=== PATIENT | male | born 1940 ===

== ENCOUNTER 2017-07-08 20:39 | Emergency (ER) | payer MEDICARE, MEDICAID ==
[2017-07-08 20:54] VITALS: TEMP 98.8
[2017-07-08 21:04] VITALS: RESP 16
--- NOTE | 2017-07-08 21:40 | ED PDOC ---
HPI: General Adult Time Seen by Provider: 07/08/17 20:59 Chief Complaint (Nursing): Chest Pain Chief Complaint (Provider): bleeding from A-V shunt History Per: Patient History/Exam Limitations: no limitations Onset/Duration Of Symptoms: Days (x1) Additional Complaint(s): Alida Garcia is a 77 year old male, with a past medical history of CAD, HTN, and end stage renal disease, who presents to the emergency department complaining of bleeding from A-V shunt in right arm onset since today. Patient reports he had dialysis completed today, and is scheduled to have dialysis on Wednesday, and Wednesday. He went home and removed the dressing and scratched the shunt. Bleeding stopped upon arrival. Patient denies any current chest pain or today. Family report he never complained of chest pain. No further medical complaints PMD: None provided. Past Medical History Reviewed: Historical Data, Nursing Documentation, Vital Signs Vital Signs: Last Vital Signs Temp 98.8 F 07/08/17 20:47 Pulse 73 07/08/17 21:53 Resp 16 07/08/17 21:03 BP 144/96 H 07/08/17 21:03 Pulse Ox 95 07/08/17 21:53 - Medical History PMH: CAD, CHF, Depression, Diabetes, Fractures, HTN, Hypercholesterolemia, End Stage Renal Disease, Chronic Kidney Disease (Dialysis ), Seizures Denies: HIV - Surgical History Surgical History: CABG, Pacemaker Other surgeries: A-V shunt on right arm - Family History Family History: States: Unknown Family Hx - Home Medications Home Medications: Ambulatory Orders Medication Instructions Recorded Aspirin [Ecotrin] 81 mg PO DAILY 11/27/16 Blood-Glucose Meter [Contour Next] 11/27/16 Carvedilol [Coreg] 3.125 mg PO BID 11/27/16 Docusate Sodium [Stool Softener] 1 cap PO HS 11/27/16 Hydroxyzine HCl 25 mg PO DAILY 11/27/16 Sevelamer Carbonate [Renvela] 800 mg PO DAILY 11/27/16 - Allergies Allergies/Adverse Reactions: Allergies Allergy/AdvReac Type Severity Reaction Status Date / Time heparin Allergy Mild SHORTNESS Verified 08/30/16 00:54 OF BREATH Review of Systems ROS Statement: Except As Marked, All Systems Reviewed And Found Negative Cardiovascular: Negative for: Chest Pain Musculoskeletal: Negative for: Other (bleeding from AV shunt) Physical Exam - Reviewed Nursing Documentation Reviewed: Yes Vital Signs Reviewed: Yes - Physical Exam Appears: Positive for: Non-toxic, Uncomfortable Head Exam: Positive for: ATRAUMATIC, NORMAL INSPECTION, NORMOCEPHALIC Skin: Positive for: Normal Color, Warm, Dry Eye Exam: Positive for: EOMI, Normal appearance, PERRL ENT: Positive for: Normal ENT Inspection Neck: Positive for: Normal, Painless ROM, Supple Cardiovascular/Chest: Positive for: Regular Rate, Rhythm, Other (Chest midline scar). Negative for: Murmur Respiratory: Positive for: Normal Breath Sounds. Negative for: Respiratory Distress Gastrointestinal/Abdominal: Positive for: Normal Exam, Bowel Sounds, Soft. Negative for: Tenderness Back: Positive for: Normal Inspection. Negative for: L CVA Tenderness, R CVA Tenderness, Vertebral Tenderness Extremity: Positive for: Normal ROM, Other (AV shunt on right upper arm normal bruit, no bleeding.). Negative for: Pedal Edema, Deformity Neurologic/Psych: Positive for: Alert, Oriented. Negative for: Motor/Sensory Deficits - Laboratory Results Result Diagrams: 07/08/17 21:20 07/08/17 21:30 - ECG ECG Rhythm: Positive for: Sinus Rhythm (NORMAL), Nonspecific Changes (T wave changes). Negative for: Normal QRS (left axis deviation) Rate: 73 O2 Sat by Pulse Oximetry: 95 (RA) Pulse Ox Interpretation: Normal Medical Decision Making Medical Decision Making: Initial Impression: traumatic bleeding from AV shunt Initial Plan: --EKG --Basic Metabolic Panel --CBC w/ differential --PTT --PT -Bleeding from AV shunt now resolved Scribe Attestation: Documented by Ike Balbuena, acting as a scribe for Kiersten Quinn MD Provider Scribe Attestation: All medical record entries made by the Scribe were at my direction and personally dictated by me. I have reviewed the chart and agree that the record accurately reflects my personal performance of the history, physical exam, medical decision making, and the department course for this patient. I have also personally directed, reviewed, and agree with the discharge instructions and disposition. Disposition - Clinical Impression Clinical Impression: Hemorrhage of arteriovenous fistula - Patient ED Disposition Is Patient to be Admitted: No Doctor Will See Patient In The: Office Counseled Patient/Family Regarding: Studies Performed, Diagnosis, Need For Followup - Disposition Referrals: [facility] [Outside] Disposition: Routine/Home Disposition Time: 22:43 Condition: GOOD Additional Instructions: Return for worsening. Follow up with your PCP in 2-3 days. Instructions: Hemodialysis (ED)
[2017-07-08 21:41] LABS: BASO % 0.8 % (0.0-2.0); EOS # 0.2 K/uL (0.0-0.7); EOS % 4.6 % (0.0-4.0); HEMATOCRIT 36.3 % (35.0-51.0); LYMPH # 0.7 K/uL (1.0-4.3); MEAN CELL VOLUME 99.5 fl (80.0-94.0); MEAN CORPUSCULAR HEMOGLOBIN 31.6 pg (27.0-31.0); MEAN CORPUSCULAR HGB CONC 31.8 g/dL (33.0-37.0); MEAN PLATELET VOLUME 8.6 fl (7.2-11.7); MONO # 0.4 K/uL (0.0-0.8); MONO % 9.6 % (0.0-10.0); NEUT # 2.6 K/uL (1.8-7.0); NRBC % 0.1 % (0.0-0.0); RED CELL DISTRIBUTION WIDTH 15.5 % (11.5-14.5); WHITE BLOOD COUNT 3.9 K/uL (4.8-10.8)
[2017-07-08 21:43] LABS: CALCIUM 9.2 mg/dL (8.4-10.2)
[2017-07-08 21:44] LABS: POTASSIUM 4.9 MMOL/L (3.6-5.0)
[2017-07-08 22:10] LABS: PARTIAL THROMBOPLASTIN TIME 28.3 Seconds (25.6-37.1)
[2017-07-08 23:19] VITALS: BP 134/71; PULSE 76; O2SAT 96
--- NOTE | 2017-07-09 08:45 | CARD ---
APPROVED REPORT EKG Measurement Heart [id number] <Conclusion> Normal sinus rhythm Left axis deviation T wave abnormality, consider lateral ischemia Prolonged QT Abnormal ECG
== END 2017-07-08 23:25 | disposition home or self-care (01) ==
LOC: H.ER 20:39
DX: T82.838A Hemorrhage due to vascular prosthetic devices, implants and grafts, initial encounter (principal); E11.22 Type 2 diabetes mellitus with diabetic chronic kidney disease; E78.00 Pure hypercholesterolemia, unspecified; F32.9 Major depressive disorder, single episode, unspecified; I12.0 Hypertensive chronic kidney disease with stage 5 chronic kidney disease or end stage renal disease; I25.10 Atherosclerotic heart disease of native coronary artery without angina pectoris; N18.6 End stage renal disease; Z79.82 Long term (current) use of aspirin; Z95.0 Presence of cardiac pacemaker; Z95.1 Presence of aortocoronary bypass graft; Z99.2 Dependence on renal dialysis

== ENCOUNTER 2017-08-07 10:22 | Observation (INO) | payer MEDICARE, MEDICAID ==
[2017-08-07 10:33] VITALS: BMI 23.0
[2017-08-07 11:56] LABS: BASO % 0.6 % (0.0-2.0); EOS # 0.2 K/uL (0.0-0.7); EOS % 4.5 % (0.0-4.0); HEMATOCRIT 31.9 % (35.0-51.0); LYMPH # 0.7 K/uL (1.0-4.3); LYMPH % 13.6 % (20.0-40.0); MEAN CORPUSCULAR HEMOGLOBIN 31.8 pg (27.0-31.0); MEAN CORPUSCULAR HGB CONC 32.7 g/dL (33.0-37.0); MONO # 0.5 K/uL (0.0-0.8); MONO % 9.9 % (0.0-10.0); NEUT # 3.5 K/uL (1.8-7.0); NEUT % 71.4 % (50.0-75.0); RED CELL DISTRIBUTION WIDTH 14.9 % (11.5-14.5); WHITE BLOOD COUNT 4.9 K/uL (4.8-10.8)
[2017-08-07 11:57] LABS: MEAN CELL VOLUME 97.4 fl (80.0-94.0)
[2017-08-07 12:11] LABS: ALB/GLOB RATIO 1.3 (1.0-2.1); BILIRUBIN,TOTAL 0.8 mg/dl (0.2-1.3); CALCIUM 9.3 mg/dL (8.4-10.2); TOTAL PROTEIN 7.1 G/DL (6.3-8.2)
[2017-08-07 12:12] LABS: POTASSIUM 5.7 MMOL/L (3.6-5.0)
--- NOTE | 2017-08-07 12:24 | ED PDOC ---
HPI: General Adult Time Seen by Provider: 08/07/17 10:57 Chief Complaint (Nursing): GI Problem History Per: Patient Additional Complaint(s): Pt. with family in ED. As per his daughter, Esther, pt. has had constipation x 5 days and has been c/o pain to his anus. States that he normally does have constipation but is usually resolved with his stool softener. Of note, pt. missed his dialysis today due to having pain in his anus. Denies fever, abdominal pain, melena, hematochezia, BRBPR, vomiting, chest pain. Past Medical History Reviewed: Historical Data, Nursing Documentation, Vital Signs Vital Signs: Last Vital Signs Temp 97.6 F 08/07/17 10:37 Pulse 77 08/07/17 14:37 Resp 18 08/07/17 14:37 BP 145/61 08/07/17 13:38 Pulse Ox 98 08/07/17 13:50 - Medical History PMH: CAD, CHF, Depression, Diabetes, Fractures, HTN, Hypercholesterolemia, End Stage Renal Disease, Chronic Kidney Disease (Dialysis T ), Seizures Denies: HIV - Surgical History Surgical History: CABG, Pacemaker - Family History Family History: States: Unknown Family Hx - Home Medications Home Medications: Ambulatory Orders Medication Instructions Recorded Aspirin [Ecotrin] 81 mg PO DAILY 11/27/16 Carvedilol [Coreg] 3.125 mg PO BID 11/27/16 Docusate Sodium [Stool Softener] 1 cap PO HS 11/27/16 Hydroxyzine HCl 25 mg PO DAILY 11/27/16 Sevelamer Carbonate [Renvela] 800 mg PO DAILY 11/27/16 - Allergies Allergies/Adverse Reactions: Allergies Allergy/AdvReac Type Severity Reaction Status Date / Time heparin Allergy Mild SHORTNESS Verified 08/30/16 00:54 OF BREATH Review of Systems ROS Statement: Except As Marked, All Systems Reviewed And Found Negative Gastrointestinal: Positive for: Constipation Physical Exam - Reviewed Nursing Documentation Reviewed: Yes Vital Signs Reviewed: Yes - Physical Exam Appears: Positive for: Well, Non-toxic, No Acute Distress Head Exam: Positive for: ATRAUMATIC, NORMAL INSPECTION, NORMOCEPHALIC Skin: Positive for: Normal Color, Warm, DRY Eye Exam: Positive for: Normal appearance ENT: Positive for: Normal ENT Inspection Neck: Positive for: Normal, Painless ROM Cardiovascular/Chest: Positive for: Regular Rate, Rhythm Respiratory: Positive for: CNT, Normal Breath Sounds Gastrointestinal/Abdominal: Positive for: Normal Exam, Bowel Sounds, Soft. Negative for: Tenderness, Distended, Guarding Back: Positive for: Normal Inspection. Negative for: L CVA Tenderness, R CVA Tenderness Rectal: Positive for: Normal Exam, Other (soft stool noted in diaper). Negative for: Black Stool, Blood Streaked Stool, Hemorrhoids, Mass Extremity: Positive for: Normal ROM Neurologic/Psych: Positive for: Alert - Laboratory Results Result Diagrams: 08/07/17 11:30 08/07/17 11:30 - ECG ECG: Positive for: Interpreted By Me ECG Rhythm: Positive for: Sinus Rhythm. Negative for: ST/T Changes Rate: 84 O2 Sat by Pulse Oximetry: 98 - Radiology X-Ray: Interpreted by Me (Obstructive series) X-Ray Interpretation: Other (FOS; ? obstructive pattern) - Progress ED Course And Treament: Labs ordered. EKG ordered. Obstructive series ordered. K: 5.7 Albuterol, kayexalate, insulin 4units IVP, D50 IVP ordered. CT abd/pelvis w/o contrast ordered. 1256 CT abd/pelvis w/o contrast: Cholelithiasis. Bilateral renal atrophy. Right pleural effusion. Case d/w Dr. Mccracken, FP resident, and arrangements made for 23 hr observation. Case d/w Dr. Mandujano, covering for Dr. Trinidad, and arrangements made for stat dialysis. 1630 Pt. had large BM while in ED. Disposition - Clinical Impression Clinical Impression: Hyperkalemia, End stage renal disease, Pleural effusion, Constipation - Patient ED Disposition Is Patient to be Admitted: Yes - Disposition Disposition Time: 13:39 Condition: STABLE - Pt Status Changed To: Hospital Disposition Of: Observation
[2017-08-07] MEDS ORDERED: Sod Polystyrene Sulf 15 gm/60 ml Susp PO STA (12:25)
[2017-08-07] MEDS ORDERED: Albuterol 0.083% Inhal Sol (2.5 mg/3 mL) UD INH STA (12:25)
[2017-08-07] MEDS ORDERED: Dextrose 50% SYRINGE Inj (50 ml) IVP ONE (12:31)
[2017-08-07] MEDS ORDERED: Insulin Regular 100 units/ml IVP STA (12:31)
[2017-08-07] MEDS ORDERED: Albuterol 0.083% Inhal Sol (2.5 mg/3 mL) UD ONE (12:56)
[2017-08-07] MEDS ORDERED: Dextrose 50% SYRINGE Inj (50 ml) ONE (12:57)
[2017-08-07] MEDS ORDERED: Insulin Regular 100 units/ml ONE (12:57)
[2017-08-07] MEDS ORDERED: Sod Polystyrene Sulf 15 gm/60 ml Susp ONE (12:57)
--- NOTE | 2017-08-07 13:15 | CT ---
PROCEDURE: CT Abdomen and Pelvis without intravenous contrast HISTORY: constipation COMPARISON: None. TECHNIQUE: Technique. Contrast Dose: Radiation dose: Total exam DLP = 283 mGy-cm. This CT exam was performed using one or more of the following dose reduction techniques: Automated exposure control, adjustment of the mA and/or kV according to patient size, and/or use of iterative reconstruction technique. FINDINGS: LOWER THORAX: There is a moderate right pleural effusion. LIVER: Unremarkable. No gross lesion or ductal dilatation. GALLBLADDER AND BILE DUCTS: Gallstones. PANCREAS: Unremarkable. No gross lesion or ductal dilatation. SPLEEN: Unremarkable. ADRENALS: Unremarkable. No mass. KIDNEYS AND URETERS: Bilateral renal atrophy. VASCULATURE: Vascular calcifications. . No aortic aneurysm. BOWEL: Fecal impaction without bowel obstruction, phlegmon abscess. APPENDIX: Unremarkable. Normal appendix. PERITONEUM: Unremarkable. No free fluid. No free air. LYMPH NODES: Unremarkable. No enlarged lymph nodes. BLADDER: Unremarkable. REPRODUCTIVE: Unremarkable. BONES: Right hip fixation surgery OTHER FINDINGS: None. IMPRESSION: Cholelithiasis. Bilateral renal atrophy. Right pleural effusion.
--- NOTE | 2017-08-07 13:25 | RAD ---
PROCEDURE: Radiographs of the chest and abdomen (obstructive series) HISTORY: constipation COMPARISON: No prior. TECHNIQUE: AP radiograph of the chest, with upright and supine radiographs of the abdomen. FINDINGS: CHEST: Lungs: Left basilar linear fibrosis. Cardiovascular: Normal size heart. No pulmonary vascular congestion. Pleura: Small left pleural effusion. Other findings: None. ABDOMEN AND PELVIS: Bowel: Unremarkable bowel gas pattern. No evidence of mechanical obstruction. Free air: None. Bones: Unremarkable. Other findings: None. IMPRESSION: Left basilar linear fibrosis.Small left pleural effusion.
--- NOTE | 2017-08-07 14:03 | CP.PCM.HP ---
History of Present Illness - History of Present Illness History of Present Illness: 77 y/o male with an extensive PMHx including ESRD on dialysis (//Wed ) and dementia presented to [facility] ED on 08/07 complaining of severe abdominal and rectal pain. Pt is currently accompanied by his georgian speaking daughter, whom reports that prior to arrival to hospital has not had a bowel movement in 5 days. Reports he was complaining of associated loss of appetite and distention , and this morning told his homemaker to send him to the hospital. When sent to the hospital, he missed his scheduled dialysis appointment. Upon further questioning, daughter reports he had a bowel movement in the ED. No other complaints. Daughter denies an history of fever/chills, headaches, dizziness, CP /SOB, N/V, urinary symptoms, numbness/tingling. ROS: limited secondary to dementia, however remainder of systems reviewed and found to be negative PMD: Dr. Geovany Carmen PMHx: ESRD on dialysis, dementia, HTN, NIDDM2, CHF, COPD, seizure disorder, thrombocytopenia MEDS: atorvastatin 10, Carvedilol 3.125, Clopidogrel 75mg, Aspirin 81, Docusate 100mg, Keppra 250mg, ProAir HFA 108, Inhal 50mcg, Sensipar 30mg ALL: Heparin SocialHx: denies current abuse of tobacco, ETOH, drug abuse FamilyHx: NC PsurgHx: CABG, pacemaker ED COURSE: Vitals on presentation: T 97.6 F, HR 86, RR 16, BP 146/71, POX 100% RA PE: w/o abnormal findings LABS: CBC: 4.9>10.4/31.9<144 BMP: K+ 5.7, BUN/Cr: 44/6.3 IMAGING: EKG: NSR at approx 82 BPM, Regular, with Left axis deviation and prolonged QTc interval of 484, no acute ST abnormalities (as interpreted by me) ABD/PELVIS CT w/o contrast: Cholelithiasis. Bilateral renal atrophy. Right pleural effusion. ABD XRAY OBST SERIES MEDS: S/P Albuterol, kayexalate, insulin 4units IVP, D50 IVP ordered CONSULTS: Nephrology: Dr. Mandujano, stat dialysis Admitted to [facility] for further monitoring/dialysis Present on Admission - Present on Admission Any Indicators Present on Admission: No Review of Systems - Review of Systems Systems not reviewed;Unavailable: Dementia Past Patient History - Past Medical History & Family History Past Medical History?: Yes - Past Social History Smoking Status: Never Smoked - CARDIAC Hx Congestive Heart Failure: Yes Hx Hypercholesterolemia: Yes Hx Hypertension: Yes Hx Pacemaker: Yes - PULMONARY Hx Respiratory Disorders: No - NEUROLOGICAL Hx Seizures: Yes - HEENT Hx HEENT Problems: No - RENAL Hx Chronic Kidney Disease: Yes (Dialysis ) - ENDOCRINE/METABOLIC Hx Endocrine Disorders: Yes - HEMATOLOGICAL/ONCOLOGICAL Hx Human Immunodeficiency Virus (HIV): No - INTEGUMENTARY Hx Dermatological Problems: No - MUSCULOSKELETAL/RHEUMATOLOGICAL Hx Fractures: Yes - GENITOURINARY/GYNECOLOGICAL Hx Genitourinary Disorders: Yes - PSYCHIATRIC Hx Depression: Yes - SURGICAL HISTORY Hx Coronary Artery Bypass Graft: Yes - ANESTHESIA Hx Anesthesia: Yes Hx Anesthesia Reactions: No Hx Malignant Hyperthermia: No Meds Allergies/Adverse Reactions: Allergies Allergy/AdvReac Type Severity Reaction Status Date / Time heparin Allergy Mild SHORTNESS Verified 08/30/16 00:54 OF BREATH Physical Exam - Constitutional Appears: Non-toxic, No Acute Distress - ENT Exam ENT Exam: Mucous Membranes Moist - Neck Exam Neck exam: Positive for: Full Rom. Negative for: Lymphadenopathy - Respiratory Exam Respiratory Exam: Decreased Breath Sounds, Clear to Auscultation Bilateral, Rales, NORMAL BREATHING PATTERN. absent: Rhonchi, Wheezes, Respiratory Distress - Cardiovascular Exam Cardiovascular Exam: REGULAR RHYTHM, RRR, +S1, +S2. absent: Tachycardia, Diastolic murmur, JVD, Rubs, Systolic Murmur - GI/Abdominal Exam GI & Abdominal Exam: Normal Bowel Sounds, Soft. absent: Distended, Firm, Guarding, Rebound, Rigid, Tenderness - Extremities Exam Extremities exam: Positive for: normal inspection, pedal pulses present. Negative for: calf tenderness, pedal edema - Back Exam Back exam: NORMAL INSPECTION - Neurological Exam Additional comments: alert and oriented to self and day, not to place. - Skin Skin Exam: Dry, Intact, Normal Color, Warm Results - Vital Signs Recent Vital Signs: Last Vital Signs Temp 97.6 F 08/07/17 10:37 Pulse 84 08/07/17 13:50 Resp 18 08/07/17 13:38 BP 145/61 08/07/17 13:38 Pulse Ox 98 08/07/17 13:50 - Labs Result Diagrams: 08/07/17 11:30 08/07/17 11:30 Labs: Laboratory Results - last 24 hr 08/07/17 08/07/17 11:30 11:30 WBC 4.9 RBC 3.27 L Hgb 10.4 L Hct 31.9 L MCV 97.4 H D MCH 31.8 H MCHC 32.7 L RDW 14.9 H Plt Count 144 MPV 8.0 Neut % (Auto) 71.4 Lymph % (Auto) 13.6 L Mccormick % (Auto) 9.9 Eos % (Auto) 4.5 H Baso % (Auto) 0.6 Neut # 3.5 Lymph # 0.7 L Mccormick # 0.5 Eos # 0.2 Baso # 0.0 Sodium 139 Potassium 5.7 H Chloride 96 L Carbon Dioxide 30 Anion Gap 19 BUN 44 H Creatinine 6.3 H Est GFR ( Amer) 10 Est GFR (Non-Af Amer) 9 Random Glucose 128 H Calcium 9.3 Total Bilirubin 0.8 AST 26 ALT 27 Alkaline Phosphatase 78 Total Protein 7.1 Albumin 4.0 Globulin 3.2 Albumin/Globulin Ratio 1.3 Assessment & Plan - Assessment and Plan (Free Text) Assessment: Assessment: 77 y/o male with an extensive PMHx and multiple comorbitities admitted for urgent dialysis/hyperkalemia secondary to missing dialysis appointment. (1) End stage renal disease -Nephrology consult with Dr. Mandujano, arrangements made for stat dialysis -f/u BMP s/p dialysis Status: Chronic (2) Hyperkalemia -secondary to missed dialysis and ESRD -s/p kayexalate, albuterol, and 4 units insulin in ED -stat dialysis today -f/u BMP in AM -placed on tele for cardiac monitoring Status: Acute (3) Pleural effusion -likely chronic, no symptoms, POX WNL -monitor Status: Acute (4) COPD (chronic obstructive pulmonary disease) -controlled -c/w home medications Status: Chronic (5) Seizure disorder -controlled -Keppra 250mg QD (cont of home med) Status: Chronic (6) CHF (congestive heart failure) -stable, systolic heart failure -controlled -c/w home meds Status: Chronic (7) Type 2 diabetes mellitus -controlled -c/w home meds Status: Chronic (8) Hypertension -controlled -c/w home meds -monitor BPs Status: Chronic (9) DVT prophylaxis -SCDs -Heparin allergic Status: Acute
[2017-08-08 01:06] VITALS: RESP 18
[2017-08-08] MEDS ORDERED: Influenza Vaccine 18yr & older 0.5 ML/45 MCG SYR IM ONE (06:00)
[2017-08-08 07:39] LABS: POTASSIUM 3.7 MMOL/L (3.6-5.0)
[2017-08-08] MEDS ORDERED: Sevelamer Carb 0.8 gm/Packet PO SCH (09:00)
--- NOTE | 2017-08-08 09:02 | CARD ---
APPROVED REPORT EKG Measurement Heart [id number] <Conclusion> Normal sinus rhythm T wave abnormality, consider lateral ischemia Prolonged QT Abnormal ECG
--- NOTE | 2017-08-08 12:08 | CP.PCM.DIS ---
Provider - Provider Date of Admission: 08/07/17 13:39 Attending physician: Odalys Brito MD Primary care physician: Dr. Kermit Adair Time Spent in preparation of Discharge (in minutes): 20 Hospital Course - Lab Results Lab Results: Most Recent Lab Values WBC 4.9 K/uL (4.8-10.8) 08/07/17 11:30 RBC 3.27 Mil/uL (4.40-5.90) L 08/07/17 11:30 Hgb 10.4 g/dL (12.0-18.0) L 08/07/17 11:30 Hct 31.9 % (35.0-51.0) L 08/07/17 11:30 MCV 97.4 fl (80.0-94.0) H D 08/07/17 11:30 MCH 31.8 pg (27.0-31.0) H 08/07/17 11:30 MCHC 32.7 g/dL (33.0-37.0) L 08/07/17 11:30 RDW 14.9 % (11.5-14.5) H 08/07/17 11:30 Plt Count 144 K/uL (130-400) 08/07/17 11:30 MPV 8.0 fl (7.2-11.7) 08/07/17 11:30 Neut % (Auto) 71.4 % (50.0-75.0) 08/07/17 11:30 Lymph % (Auto) 13.6 % (20.0-40.0) L 08/07/17 11:30 [place] % (Auto) 9.9 % (0.0-10.0) 08/07/17 11:30 Eos % (Auto) 4.5 % (0.0-4.0) H 08/07/17 11:30 Baso % (Auto) 0.6 % (0.0-2.0) 08/07/17 11:30 Neut # 3.5 K/uL (1.8-7.0) 08/07/17 11:30 Lymph # 0.7 K/uL (1.0-4.3) L 08/07/17 11:30 [place] # 0.5 K/uL (0.0-0.8) 08/07/17 11:30 Eos # 0.2 K/uL (0.0-0.7) 08/07/17 11:30 Baso # 0.0 K/uL (0.0-0.2) 08/07/17 11:30 Sodium 139 mmol/l (132-148) 08/08/17 06:00 Potassium 3.7 MMOL/L (3.6-5.0) 08/08/17 06:00 Chloride 93 mmol/L (98-107) L 08/08/17 06:00 Carbon Dioxide 32 mmol/L (22-30) H 08/08/17 06:00 Anion Gap 18 (10-20) 08/08/17 06:00 BUN 24 mg/dl (9-20) H 08/08/17 06:00 Creatinine 4.5 mg/dL (0.8-1.5) H 08/08/17 06:00 Est GFR ( Amer) 15 08/08/17 06:00 Est GFR (Non-Af Amer) 13 08/08/17 06:00 POC Glucose (mg/dL) 87 mg/dL (65-110) 08/08/17 04:38 Random Glucose 84 mg/dL (75-110) 08/08/17 06:00 Calcium 9.0 mg/dL (8.4-10.2) 08/08/17 06:00 Total Bilirubin 0.8 mg/dl (0.2-1.3) 08/07/17 11:30 AST 26 U/L (17-59) 08/07/17 11:30 ALT 27 U/L (21-72) 08/07/17 11:30 Alkaline Phosphatase 78 U/L (38-126) 08/07/17 11:30 Total Protein 7.1 G/DL (6.3-8.2) 08/07/17 11:30 Albumin 4.0 g/dL (3.5-5.0) 08/07/17 11:30 Globulin 3.2 gm/dL (2.2-3.9) 08/07/17 11:30 Albumin/Globulin Ratio 1.3 (1.0-2.1) 08/07/17 11:30 - Hospital Course Hospital Course: 77 YO male with PMH of ESRD on HD (//wed), baseline dementia, and multiple comorbidities admitted for urgent dialysis/hyperkalemia secondary to missing dialysis appointment. Pt was dialyzed last night, hyperkalemia resolved post dialysis. Pt doing well this AM, pleasantly demented. Will d/c home with follow up with PMD. Continue dialysis //Sat. Discharge Exam - Head Exam Head Exam: ATRAUMATIC, NORMAL INSPECTION, NORMOCEPHALIC - Eye Exam Eye Exam: EOMI, Normal appearance - ENT Exam ENT Exam: Mucous Membranes Moist - Neck Exam Neck exam: Full Rom - Respiratory Exam Respiratory Exam: Clear to PA & Lateral, NORMAL BREATHING PATTERN - Cardiovascular Exam Cardiovascular Exam: REGULAR RHYTHM, +S1, +S2, Systolic Murmur - GI/Abdominal Exam GI & Abdominal Exam: Normal Bowel Sounds. absent: Distended, Guarding, Tenderness - Extremities Exam Extremities exam: full ROM, normal inspection - Back Exam Back exam: NORMAL INSPECTION - Neurological Exam Neurological exam: Alert Additional comments: pleasantly demented - Psychiatric Exam Psychiatric exam: Normal Affect, Normal Mood - Skin Skin Exam: Dry, Intact, Normal Color, Warm Discharge Plan - Discharge Medications Prescriptions: Docusate [Colace] 100 mg PO BID #30 cap - Follow Up Plan Condition: STABLE Disposition: HOME/ ROUTINE Patient education suggested?: Yes Instructions: Dialysis Diet (DC), End Stage Kidney Disease (DC) Additional Instructions: Please continue dialysis on [id number] Follow up with PMD Come back to ER if symptoms persist or worsen
[2017-08-08 12:23] VITALS: BP 103/51; PULSE 93; TEMP 98; O2SAT 96
--- NOTE | 2017-08-08 15:02 | CP.PCM.CON ---
History of Present Illness - History of Present Illness History of Present Illness: REASONS FOR CONSULT : ESRD ON HD TTS .. SKIPPED HIS HD 2/2 DIAHREA HYPERKALEMIA .. K 5.7 ANEMIA OF CKD .. STABLE H/H OLD RECORDS WELL CURRENT CHART WERE ALL REVIEWED .. PT WAS SEEN IN ER ..ON HIS WAY TO [facility] 77 y/o male with an extensive PMHx including ESRD on dialysis (//Wed ) and dementia presented to [facility] ED on 08/07 complaining of severe abdominal and rectal pain. Pt is currently accompanied by his italian speaking daughter, whom reports that prior to arrival to hospital has not had a bowel movement in 5 days. Reports he was complaining of associated loss of appetite and distention , and this morning told his homemaker to send him to the hospital. When sent to the hospital, he missed his scheduled dialysis appointment. Upon further questioning, daughter reports he had a bowel movement in the ED. No other complaints. Daughter denies an history of fever/chills, headaches, dizziness, CP /SOB, N/V, urinary symptoms, numbness/tingling. ROS: limited secondary to dementia, however remainder of systems reviewed and found to be negative PMD: Dr. Geovany Carmen PMHx: ESRD on dialysis, dementia, HTN, NIDDM2, CHF, COPD, seizure disorder, thrombocytopenia MEDS: atorvastatin 10, Carvedilol 3.125, Clopidogrel 75mg, Aspirin 81, Docusate 100mg, Keppra 250mg, ProAir HFA 108, Inhal 50mcg, Sensipar 30mg ALL: Heparin SocialHx: denies current abuse of tobacco, ETOH, drug abuse FamilyHx: NC PsurgHx: CABG, pacemaker ED COURSE: Vitals on presentation: T 97.6 F, HR 86, RR 16, BP 146/71, POX 100% RA PE: w/o abnormal findings LABS: CBC: 4.9>10.4/31.9<144 BMP: K+ 5.7, BUN/Cr: 44/6.3 IMAGING: EKG: NSR at approx 82 BPM, Regular, with Left axis deviation and prolonged QTc interval of 484, no acute ST abnormalities (as interpreted by me) ABD/PELVIS CT w/o contrast: Cholelithiasis. Bilateral renal atrophy. Right pleural effusion. ABD XRAY OBST SERIES MEDS: Past Patient History - Past Medical History & Family History Past Medical History?: Yes - Past Social History Smoking Status: Never Smoked - CARDIAC Hx Congestive Heart Failure: Yes Hx Hypercholesterolemia: Yes Hx Hypertension: Yes Hx Pacemaker: Yes - PULMONARY Hx Respiratory Disorders: No Hx Chronic Obstructive Pulmonary Disease (COPD): Yes - NEUROLOGICAL Hx Seizures: Yes - HEENT Hx HEENT Problems: No - RENAL Hx Chronic Kidney Disease: Yes (Dialysis ) - ENDOCRINE/METABOLIC Hx Endocrine Disorders: Yes - HEMATOLOGICAL/ONCOLOGICAL Hx Human Immunodeficiency Virus (HIV): No - INTEGUMENTARY Hx Dermatological Problems: No - MUSCULOSKELETAL/RHEUMATOLOGICAL Hx Falls: No - GENITOURINARY/GYNECOLOGICAL Hx Genitourinary Disorders: Yes - PSYCHIATRIC Hx Substance Use: No - SURGICAL HISTORY Hx Coronary Artery Bypass Graft: Yes - ANESTHESIA Hx Anesthesia: Yes Hx Anesthesia Reactions: No Hx Malignant Hyperthermia: No Meds Home Medications: Home Medication List Medication Instructions Recorded Confirmed Type Docusate [Colace] 100 mg PO BID #30 cap 08/08/17 Rx Sevelamer Carbonate [Renvela] 0.8 gm PO DAILY packet 08/08/17 Rx levETIRAcetam [Keppra] 250 mg PO DAILY tab 08/08/17 Rx Allergies/Adverse Reactions: Allergies Allergy/AdvReac Type Severity Reaction Status Date / Time heparin Allergy Mild SHORTNESS Verified 08/30/16 00:54 OF BREATH Results - Vital Signs Recent Vital Signs: Last Vital Signs Temp 98 F 08/08/17 12:22 Pulse 93 H 08/08/17 12:22 Resp 18 08/08/17 12:22 BP 103/51 L 08/08/17 12:22 Pulse Ox 96 08/08/17 12:22 - Labs Result Diagrams: 08/07/17 11:30 08/08/17 06:00 Labs: Laboratory Results - last 24 hr 08/07/17 08/07/17 08/08/17 17:44 21:25 04:38 Sodium Potassium Chloride Carbon Dioxide Anion Gap BUN Creatinine Est GFR ( Amer) Est GFR (Non-Af Amer) POC Glucose (mg/dL) 98 85 87 Random Glucose Calcium 08/08/17 06:00 Sodium 139 Potassium 3.7 Chloride 93 L Carbon Dioxide 32 H Anion Gap 18 BUN 24 H Creatinine 4.5 H Est GFR ( Amer) 15 Est GFR (Non-Af Amer) 13 POC Glucose (mg/dL) Random Glucose 84 Calcium 9.0 Assessment & Plan - Assessment and Plan (Free Text) Assessment: ESRD ON HD T T S .. WILL GIVE HD STAT HYPERKALEMIA .. NEEDS STAT HD C/O PRESENT CARE CASE D/W ER ATTENDING - Date & Time Date: 08/07/17 Time: 13:00
== END 2017-08-08 13:25 | disposition home or self-care (01) ==
LOC: H.ER 10:22 → H.ERHOLD 13:39 → H.TEL 18:20
PROVIDERS: ADMIT Family Medicine Geriatric Medicine; ATTEND Family Medicine Geriatric Medicine
DX: E87.5 Hyperkalemia (principal); D63.1 Anemia in chronic kidney disease; E11.22 Type 2 diabetes mellitus with diabetic chronic kidney disease; I25.10 Atherosclerotic heart disease of native coronary artery without angina pectoris; E78.00 Pure hypercholesterolemia, unspecified; F03.90 Unspecified dementia, unspecified severity, without behavioral disturbance, psychotic disturbance, mood disturbance, and anxiety; G40.909 Epilepsy, unspecified, not intractable, without status epilepticus; I13.2 Hypertensive heart and chronic kidney disease with heart failure and with stage 5 chronic kidney disease, or end stage renal disease; I50.22 Chronic systolic (congestive) heart failure; J44.9 Chronic obstructive pulmonary disease, unspecified; K59.00 Constipation, unspecified; K62.89 Other specified diseases of anus and rectum; N18.6 End stage renal disease; Z79.82 Long term (current) use of aspirin; Z79.899 Other long term (current) drug therapy; Z95.0 Presence of cardiac pacemaker; Z95.1 Presence of aortocoronary bypass graft; Z99.2 Dependence on renal dialysis; D69.6 Thrombocytopenia, unspecified; Z79.84 Long term (current) use of oral hypoglycemic drugs; F32.9 Major depressive disorder, single episode, unspecified; R56.9 Unspecified convulsions; R63.0 Anorexia; Z23 Encounter for immunization
CPT/HCPCS: 36415; 74022; 74176; 80048; 80053; 82948; 85025; 86705; 86706; 87340; 93005; 96374; 96375; 99285; G0008; G0257; G0378; Q2035

== ENCOUNTER 2017-10-28 08:06 | Observation (INO) | payer MEDICARE, MEDICAID ==
[2017-10-28 08:06] VITALS: BMI 23.0
[2017-10-28 10:15] LABS: BASO # 0.1 K/uL (0.0-0.2); BASO % 0.8 % (0.0-2.0); EOS # 0.3 K/uL (0.0-0.7); EOS % 3.8 % (0.0-4.0); LYMPH # 1.2 K/uL (1.0-4.3); LYMPH % 17.3 % (20.0-40.0); MEAN CELL VOLUME 97.4 fl (80.0-94.0); MEAN CORPUSCULAR HEMOGLOBIN 31.8 pg (27.0-31.0); MEAN CORPUSCULAR HGB CONC 32.6 g/dL (33.0-37.0); MEAN PLATELET VOLUME 9.7 fl (7.2-11.7); MONO # 0.6 K/uL (0.0-0.8); MONO % 8.2 % (0.0-10.0); NEUT # 4.7 K/uL (1.8-7.0); NEUT % 69.9 % (50.0-75.0); NRBC % 0.2 % (0.0-0.0); RBC 3.16 Mil/uL (4.40-5.90); RED CELL DISTRIBUTION WIDTH 16.7 % (11.5-14.5); WHITE BLOOD COUNT 6.7 K/uL (4.8-10.8)
[2017-10-28 10:25] LABS: INR 1.1 (0.9-1.2); PROTHROMBIN TIME 11.9 Seconds (9.8-13.1)
[2017-10-28 10:35] LABS: PARTIAL THROMBOPLASTIN TIME 31.6 Seconds (25.6-37.1)
[2017-10-28 10:36] LABS: CALCIUM 9.5 mg/dL (8.4-10.2)
[2017-10-28 10:49] LABS: TROPONIN I 0.014 ng/mL (0.00-0.120)
--- NOTE | 2017-10-28 11:17 | RAD ---
HISTORY: chest pain COMPARISON: Chest radiograph 08/07/2017. FINDINGS: LUNGS: Pulmonary vascular congestion. Left basilar atelectasis. PLEURA: Small left pleural effusion. No appreciable pneumothorax. CARDIOVASCULAR: Prior sternotomy with sternal wires and surgical clips redemonstrated. Atherosclerotic aortic calcifications. Cardiomediastinal silhouette stably enlarged. OSSEOUS STRUCTURES: Unchanged. VISUALIZED UPPER ABDOMEN: Normal. OTHER FINDINGS: Right subclavian/ brachiocephalic vein stent redemonstrated. IMPRESSION: Pulmonary vascular congestion and small left pleural effusion.
--- NOTE | 2017-10-28 15:19 | CP.PCM.HP ---
History of Present Illness - History of Present Illness History of Present Illness: Family Medicine 77 year old male patient with extensive PMHx including ESRD on HD () and dementia seen in ED regarding chest pain. HPI limited secondary to dementia. Son-in-law present at bedside; HPI obtained from son however admits he was not present during episode. Per patient's son-in-law, patient missed his dialysis appointment at 7:00 AM this morning, and later in the day began to develop chest pain, fever, and "low pulse." Patient appears lethargic and falling asleep during interview however arousable. Son-in-law states this is patient's baseline. ROS unable to be obtained due to dementia. PMD: [facility] - Dr. Geovany Carmen PMHx: ESRD on HD (TThS), dementia, DM2, CHF, HTN, seizure, CAD s/p CABG PSH: CABG 15 years ago, AV fistula for dialysis x2 FH: non-contributory SH: denies ETOH/tobacco/illicit drug use All: Heparin ED COURSE: Vitals: 98.5F | 80 | BP 160/72 | RR 16 | 98% RA CBC/BMP: 6.7>10.0/30.7<108; 142/5.6, 96/35, 46/6.3, glucose 94 Troponin WNL EKG: NSR at 82 bpm; lateral infarct, age undetermined CXR: pulmonary vascular congestion and small left pleural effusion CONSULTS: Nephrology: Dr. Mandujano, stat dialysis Present on Admission - Present on Admission Any Indicators Present on Admission: No Review of Systems - Review of Systems Systems not reviewed;Unavailable: Dementia Past Patient History - Past Medical History & Family History Past Medical History?: Yes - Past Social History Smoking Status: Never Smoked - CARDIAC Hx Cardiac Disorders: Yes Hx Congestive Heart Failure: Yes Hx Hypercholesterolemia: Yes Hx Hypertension: Yes Hx Pacemaker: Yes - PULMONARY Hx Chronic Obstructive Pulmonary Disease (COPD): Yes - NEUROLOGICAL Hx Seizures: Yes - HEENT Hx HEENT Problems: No - RENAL Hx Chronic Kidney Disease: Yes (Dialysis ) Hx Dialysis: Yes Type of Dialysis Access: AV fistula (right upper arm) Date of Last Dialysis Treatment: 10/26/17 - ENDOCRINE/METABOLIC Hx Endocrine Disorders: Yes - HEMATOLOGICAL/ONCOLOGICAL Hx Human Immunodeficiency Virus (HIV): No - INTEGUMENTARY Hx Dermatological Problems: No - MUSCULOSKELETAL/RHEUMATOLOGICAL Hx Falls: No - GENITOURINARY/GYNECOLOGICAL Hx Genitourinary Disorders: Yes - PSYCHIATRIC Hx Depression: Yes Hx Substance Use: No - SURGICAL HISTORY Hx Coronary Artery Bypass Graft: Yes - ANESTHESIA Hx Anesthesia: Yes Hx Anesthesia Reactions: No Hx Malignant Hyperthermia: No Meds Allergies/Adverse Reactions: Allergies Allergy/AdvReac Type Severity Reaction Status Date / Time heparin Allergy Mild SHORTNESS Verified 08/30/16 00:54 OF BREATH Physical Exam - Constitutional Appears: Non-toxic, No Acute Distress - Head Exam Head Exam: ATRAUMATIC, NORMAL INSPECTION - Eye Exam Eye Exam: Periorbital swelling Pupil Exam: NORMAL ACCOMODATION - ENT Exam ENT Exam: Mucous Membranes Moist - Neck Exam Neck exam: Positive for: Normal Inspection. Negative for: Tenderness - Respiratory Exam Respiratory Exam: Clear to Auscultation Bilateral. absent: Respiratory Distress - Cardiovascular Exam Cardiovascular Exam: RRR, +S1, +S2 - GI/Abdominal Exam GI & Abdominal Exam: Normal Bowel Sounds, Soft. absent: Tenderness - Extremities Exam Additional comments: RUE AV fistula with audible thrill. Old AV fistula LUE. Palpable peripheral pulses. - Neurological Exam Additional comments: Patient drowsy, able to follow commands, answers simple questions - Skin Skin Exam: Dry, Intact Results - Vital Signs Recent Vital Signs: Last Vital Signs Temp 98.5 F 10/28/17 08:29 Pulse 80 10/28/17 08:29 Resp 16 10/28/17 08:29 BP 160/72 H 10/28/17 08:29 Pulse Ox 98 10/28/17 08:29 - Labs Result Diagrams: 10/28/17 10:08 10/28/17 10:08 Labs: Laboratory Results - last 24 hr 10/28/17 10/28/17 10/28/17 10:08 10:08 10:08 WBC 6.7 RBC 3.16 L Hgb 10.0 L Hct 30.7 L MCV 97.4 H MCH 31.8 H MCHC 32.6 L RDW 16.7 H Plt Count 108 L D MPV 9.7 Neut % (Auto) 69.9 Lymph % (Auto) 17.3 L Mcdonough % (Auto) 8.2 Eos % (Auto) 3.8 Baso % (Auto) 0.8 Neut # 4.7 Lymph # 1.2 Mcdonough # 0.6 Eos # 0.3 Baso # 0.1 PT 11.9 INR 1.1 APTT 31.6 Sodium 142 Potassium 5.6 H Chloride 96 L Carbon Dioxide 35 H Anion Gap 17 BUN 46 H Creatinine 6.3 H Est GFR ( Amer) 10 Est GFR (Non-Af Amer) 9 Random Glucose 94 Calcium 9.5 Troponin I 0.0140 Assessment & Plan - Assessment and Plan (Free Text) Assessment: 77 year old male with extensive PMHx including ESRD on HD (/), dementia, CHF, seizure admitted to telemetry for chest pain, and hyperkalemia after missing scheduled dialysis. (1) Chest pain r/o ACS CXR: pulmonary vascular congestion and small left pleural effusion -Previous CXR (08/07/17): Left basilar linear fibrosis; small left pleural effusion EKG: NSR at 82 bpm; lateral infarct, age undetermined -f/u next day EKG Troponin x1 WNL -f/u troponin Q8 f/u BNP Start ASA 81 mg PO QD Pain control - Tylenol O2 via nasal cannula prn (2) ESRD (//Wed) Missed scheduled dialysis this AM BUN/Cr = 46/6.[address] Mandujano consulted Plan for STAT dialysis tonight (3) Hyperkalemia K 5.6 in ED EKG NSR with no acute changes present STAT dialysis tonight Continue to monitor (4) CAD s/p CABG >15 yrs ago Home med: Atorvastatin 10mg PO QD (5) CHF, systolic Previous Echo (07/2016): global hypokinesis and reduced LVEF of 20-25% Home med: Coreg 3.125mg PO bid Stable, will continue to monitor (6) Seizure d/o Home meds: Keppra 500mg QD; Keppra 250mg PO /Wed/Wed after dialysis (7) DVT Prophylaxis Heparin allergy SCDs
--- NOTE | 2017-10-28 15:20 | ED PDOC ---
HPI: Chest Pain Time Seen by Provider: 10/28/17 09:19 Chief Complaint (Nursing): Chest Pain Chief Complaint (Provider): Chest Pain History Per: Patient History/Exam Limitations: no limitations Onset/Duration Of Symptoms: Days (x1) Current Symptoms Are (Timing): Still Present Additional Complaint(s): 77 year old male with previous medical history of end-stage renal disease and CAD, who presents to the emergency department with a complaint of chest pain radiating to right arm associated with fever and congestion ongoing since this morning. Patient reported all symptoms resolved upon arrival to ED and denied any further medical complaints. Of note, patient usually goes for dialysis but missed today's appointment due to initial chest pain. PMD: Geovany Carmen MD [employer] Heater: Dr. Caro Past Medical History Reviewed: Historical Data, Nursing Documentation, Vital Signs Vital Signs: Last Vital Signs Temp 97.3 F L 10/29/17 12:00 Pulse 75 10/29/17 12:00 Resp 20 10/29/17 12:00 BP 113/53 L 10/29/17 12:00 Pulse Ox 93 L 10/29/17 12:00 - Medical History PMH: CAD, CHF, COPD, Depression, Diabetes, Fractures, HTN, Hypercholesterolemia , End Stage Renal Disease, Chronic Kidney Disease (Dialysis T ), Seizures Denies: HIV - Surgical History Surgical History: CABG, Pacemaker - Family History Family History: States: Unknown Family Hx - Social History Current smoker - smoking cessation education provided: No Ex-Smoker (has not smoked in the last 12 months): No Alcohol: None Drugs: Denies - Home Medications Home Medications: Ambulatory Orders Medication Instructions Recorded Aspirin [Ecotrin] 81 mg PO DAILY 11/27/16 Carvedilol [Coreg] 3.125 mg PO BID 11/27/16 Docusate Sodium [Stool Softener] 1 cap PO HS 11/27/16 Hydroxyzine HCl 25 mg PO DAILY 11/27/16 Sevelamer Carbonate [Renvela] 800 mg PO DAILY 11/27/16 Docusate [Colace] 100 mg PO BID #30 cap 08/08/17 Sevelamer Carbonate [Renvela] 0.8 gm PO DAILY packet 08/08/17 levETIRAcetam [Keppra] 250 mg PO DAILY tab 08/08/17 Aspirin [Lo-Dose Aspirin EC] 81 mg PO DAILY 10/28/17 Atorvastatin [Lipitor] 10 mg PO DAILY 10/28/17 Carvedilol [Coreg] 3.125 mg PO DAILY 10/28/17 Docusate Sodium [Velasquez' 100 mg PO DAILY 10/28/17 Laxative] Levetiracetam [Keppra] 250 mg PO DAILY 10/28/17 Levetiracetam [Roweepra] 500 mg PO DAILY 10/28/17 Olopatadine 0.1% Opht [Patanol 1 drop BOTHEYES DAILY 10/28/17 0.1% Opht Soln] Omeprazole 40 mg PO DAILY 10/28/17 Sevelamer Carbonate [Renvela] 800 mg PO DAILY 10/28/17 Vit B Cmplx 3/Folic AC/C/Biot 1 tab PO DAILY 10/28/17 [Celia-Chaz Rx Tablet] - Allergies Allergies/Adverse Reactions: Allergies Allergy/AdvReac Type Severity Reaction Status Date / Time heparin Allergy Mild SHORTNESS Verified 08/30/16 00:54 OF BREATH Review of Systems ROS Statement: Except As Marked, All Systems Reviewed And Found Negative Constitutional: Positive for: Fever ENT: Positive for: Nose Congestion Cardiovascular: Positive for: Chest Pain Musculoskeletal: Positive for: Arm Pain (right-sided) Physical Exam - Reviewed Nursing Documentation Reviewed: Yes Vital Signs Reviewed: Yes - Physical Exam Appears: Positive for: Well, Non-toxic, No Acute Distress Head Exam: Positive for: ATRAUMATIC, NORMAL INSPECTION, NORMOCEPHALIC Skin: Positive for: Normal Color Eye Exam: Positive for: Normal appearance ENT: Positive for: Normal ENT Inspection Neck: Positive for: Normal, Painless ROM, Supple. Negative for: Decreased ROM Cardiovascular/Chest: Positive for: Regular Rate, Rhythm, Chest Non Tender, Other (mid-line scar noted) Respiratory: Positive for: Normal Breath Sounds. Negative for: Decreased Breath Sounds, Wheezing, Respiratory Distress Gastrointestinal/Abdominal: Positive for: Normal Exam, Soft. Negative for: Tenderness Extremity: Positive for: Normal ROM (upper/lower), Other ( AV shunt with normal bruit present in right arm). Negative for: Pedal Edema (bilateral), Calf Tenderness (bilateral) Neurologic/Psych: Positive for: Alert, Oriented. Negative for: Motor/Sensory Deficits - Laboratory Results Result Diagrams: 10/29/17 05:17 10/29/17 05:17 - ECG O2 Sat by Pulse Oximetry: 100 (RA) Pulse Ox Interpretation: Normal Medical Decision Making Medical Decision Making: Initial Impression: Chest pain Diff include ACS, volume overload, CHF Initial Plan: * EKG * BMP * Troponin I * CBC * PTT * PT * CXR * Blood cluture * Tylenol 650mg PO Q6hrs PRN * Nephrology cosult * Admit to hospital ____ Time: 1115 --CXR FINDINGS: LUNGS: Pulmonary vascular congestion. Left basilar atelectasis. PLEURA: Small left pleural effusion. No appreciable pneumothorax. CARDIOVASCULAR: Prior sternotomy with sternal wires and surgical clips redemonstrated. Atherosclerotic aortic calcifications. Cardiomediastinal silhouette stably enlarged. OSSEOUS STRUCTURES: Unchanged. VISUALIZED UPPER ABDOMEN: Normal. OTHER FINDINGS: Right subclavian/ brachiocephalic vein stent redemonstrated. IMPRESSION: Pulmonary vascular congestion and small left pleural effusion. ____ Time: 1948 --Discussed case with family resident, Marcelle Kruger. --Discussed case with nephrology resident, Zaheer Mandujano, who will set patient up for dialysis. Scribe Attestation: Documented by Bridget Lindo, acting as a scribe for Kiersten Quinn MD. Provider Scribe Attestation: All medical record entries made by the Scribe were at my direction and personally dictated by me. I have reviewed the chart and agree that the record accurately reflects my personal performance of the history, physical exam, medical decision making, and the department course for this patient. I have also personally directed, reviewed, and agree with the discharge instructions and disposition. Disposition - Clinical Impression Clinical Impression: Chest pain, ESRD (end stage renal disease) on dialysis - Patient ED Disposition Is Patient to be Admitted: No Counseled Patient/Family Regarding: Studies Performed, Diagnosis - Disposition Disposition Time: 13:30 Condition: FAIR - Pt Status Changed To: Hospital Disposition Of: Observation - POA Present On Arrival: None
--- NOTE | 2017-10-28 21:36 | CP.PCM.CON ---
History of Present Illness - History of Present Illness History of Present Illness: REASONS FOR CONSULTATION : ESRD ON HD T [facility] S .. MISSED HIS HD THIS AM ANEMIA OF CKD .. HGB 10.0 NOT BAD VASCULAR CONGESTION . FLIUS OVER LOAD .. WITH PRO BNP > 100 . 000 HYPER KALEMIA WITH K 5.6 PT WAS SEEN AND EXAMINED .. SEEN ON HD .. ALL EMR REVIEWED .. LABS REVIEWED PT OF DR DONALD .. ON HD T [facility] .. MISSED HIS HD TODAY AT 7.00 AM 2/2 C/P AND NOT FEELING WELL 77 year old male with previous medical history of end-stage renal disease and CAD, who presents to the emergency department with a complaint of chest pain radiating to right arm associated with fever and congestion ongoing since this morning. Patient reported all symptoms resolved upon arrival to ED and denied any further medical complaints. Of note, patient usually goes for dialysis but missed today's appointment due to initial chest pain. PMD: Geovany Carmen MD Steel Sampler: Dr. Gurrola Past Medical History Reviewed: Historical Data, Nursing Documentation, Vital Signs Vital Signs: Last Vital Signs Temp 98.5 F 10/28/17 08:29 Pulse 92 H 10/28/17 12:25 Resp 14 10/28/17 12:25 BP 148/79 10/28/17 12:25 Pulse Ox 100 10/28/17 15:48 - Medical History PMH: CAD, CHF, COPD, Depression, Diabetes, Fractures, HTN, Hypercholesterolemia , End Stage Renal Disease, Chronic Kidney Disease (Dialysis ), Seizures Denies: HIV - Surgical History Surgical History: CABG, Pacemaker Denies: No Surg Hx - Family History Family History: States: Unknown Family Hx - Social History Current smoker - smoking cessation education provided: No Ex-Smoker (has not smoked in the last 12 months): No Alcohol: None Drugs: Denies - Home Medications Home Medications: Ambulatory Orders Medication Instructions Recorded Aspirin [Ecotrin] 81 mg PO DAILY 11/27/16 Carvedilol [Coreg] 3.125 mg PO BID 11/27/16 Docusate Sodium [Stool Softener] 1 cap PO HS 11/27/16 Hydroxyzine HCl 25 mg PO DAILY 11/27/16 Sevelamer Carbonate [Renvela] 800 mg PO DAILY 11/27/16 Docusate [Colace] 100 mg PO BID #30 cap 08/08/17 Sevelamer Carbonate [Renvela] 0.8 gm PO DAILY packet 08/08/17 levETIRAcetam [Keppra] 250 mg PO DAILY tab 08/08/17 Aspirin [Lo-Dose Aspirin EC] 81 mg PO DAILY 10/28/17 Atorvastatin [Lipitor] 10 mg PO DAILY 10/28/17 Carvedilol [Coreg] 3.125 mg PO DAILY 10/28/17 Docusate Sodium [Velasquez' 100 mg PO DAILY 10/28/17 Laxative] Levetiracetam [Keppra] 250 mg PO DAILY 10/28/17 Levetiracetam [Roweepra] 500 mg PO DAILY 10/28/17 Olopatadine 0.1% Opht [Patanol 1 drop BOTHEYES DAILY 10/28/17 0.1% Opht Soln] Omeprazole [Omeprazole] 40 mg PO DAILY 10/28/17 Sevelamer Carbonate [Renvela] 800 mg PO DAILY 10/28/17 Vit B Cmplx 3/Folic AC/C/Biot 1 tab PO DAILY 10/28/17 [Celia-Chaz Rx Tablet] Past Patient History - Past Medical History & Family History Past Medical History?: Yes - Past Social History Smoking Status: Never Smoked - CARDIAC Hx Cardiac Disorders: Yes Hx Congestive Heart Failure: Yes Hx Hypercholesterolemia: Yes Hx Hypertension: Yes Hx Pacemaker: Yes - PULMONARY Hx Chronic Obstructive Pulmonary Disease (COPD): Yes - NEUROLOGICAL Hx Seizures: Yes - HEENT Hx HEENT Problems: No - RENAL Hx Chronic Kidney Disease: Yes (Dialysis ) Hx Dialysis: Yes Type of Dialysis Access: AV fistula (right upper arm) Date of Last Dialysis Treatment: 10/26/17 - ENDOCRINE/METABOLIC Hx Endocrine Disorders: Yes - HEMATOLOGICAL/ONCOLOGICAL Hx Human Immunodeficiency Virus (HIV): No - INTEGUMENTARY Hx Dermatological Problems: No - MUSCULOSKELETAL/RHEUMATOLOGICAL Hx Falls: No - GENITOURINARY/GYNECOLOGICAL Hx Genitourinary Disorders: Yes - PSYCHIATRIC Hx Depression: Yes Hx Substance Use: No - SURGICAL HISTORY Hx Coronary Artery Bypass Graft: Yes - ANESTHESIA Hx Anesthesia: Yes Hx Anesthesia Reactions: No Hx Malignant Hyperthermia: No Meds Allergies/Adverse Reactions: Allergies Allergy/AdvReac Type Severity Reaction Status Date / Time heparin Allergy Mild SHORTNESS Verified 08/30/16 00:54 OF BREATH - Medications Medications: Current Medications Acetaminophen (Tylenol 325mg Tab) 650 mg PO Q6 PRN PRN Reason: Pain, Mild (1-3) Aspirin (Ecotrin) 81 mg PO DAILY [facility] Atorvastatin Calcium (Lipitor) 10 mg PO HS CASSIUS Carvedilol (Coreg) 3.125 mg PO Q12 [facility] Docusate Sodium (Colace) 100 mg PO DAILY [facility] Levetiracetam (Keppra) 500 mg PO DAILY [facility] Vitamin B Complex/Vit C/Folic Acid (Nephro-Chaz) 1 tab PO DAILY [facility] Results - Vital Signs Recent Vital Signs: Last Vital Signs Temp 98.5 F 10/28/17 20:00 Pulse 88 10/28/17 20:00 Resp 18 10/28/17 20:00 BP 160/71 H 10/28/17 20:00 Pulse Ox 99 10/28/17 20:00 - Labs Result Diagrams: 10/28/17 10:08 10/28/17 10:08 Labs: Laboratory Results - last 24 hr 10/28/17 10/28/17 10/28/17 10:08 10:08 10:08 WBC 6.7 RBC 3.16 L Hgb 10.0 L Hct 30.7 L MCV 97.4 H MCH 31.8 H MCHC 32.6 L RDW 16.7 H Plt Count 108 L D MPV 9.7 Neut % (Auto) 69.9 Lymph % (Auto) 17.3 L Barber % (Auto) 8.2 Eos % (Auto) 3.8 Baso % (Auto) 0.8 Neut # 4.7 Lymph # 1.2 Barber # 0.6 Eos # 0.3 Baso # 0.1 PT 11.9 INR 1.1 APTT 31.6 Sodium 142 Potassium 5.6 H Chloride 96 L Carbon Dioxide 35 H Anion Gap 17 BUN 46 H Creatinine 6.3 H Est GFR ( Amer) 10 Est GFR (Non-Af Amer) 9 Random Glucose 94 Calcium 9.5 Troponin I 0.0140 NT-Pro-B Natriuret Pep 10/28/17 10/28/17 16:58 18:01 WBC RBC Hgb Hct MCV MCH MCHC RDW Plt Count MPV Neut % (Auto) Lymph % (Auto) Barber % (Auto) Eos % (Auto) Baso % (Auto) Neut # Lymph # Barber # Eos # Baso # PT INR APTT Sodium Potassium Chloride Carbon Dioxide Anion Gap BUN Creatinine Est GFR ( Amer) Est GFR (Non-Af Amer) Random Glucose Calcium Troponin I 0.0140 NT-Pro-B Natriuret Pep [id number] H Assessment & Plan - Assessment and Plan (Free Text) Assessment: ESRD .. MISSED HIS HD THIS AM .. GETTING HIS HD NOW HYPERKALEMIA .. K 5.6 .. GETTING HD NOW FLIUD OVERLOAD .. GETTING HD NOW .. TO UF 4 L DENISE ANEMIA OF CKD .. HGB STABLE MMP P : HD RIGHT NOW FOR FLUID OVERLOAD AND HYPERKALEMIA RENAL AND DIABETIC DIET .. 2 G NA .. 2 G K .. 100 G PROTIEN .. 1800 ALAINA ADA DIETARY CONSULT AND COUNSELLING FOR ABOVE DIET - Date & Time Date: 10/28/17 Time: 17:00
[2017-10-29 06:09] LABS: MEAN CELL VOLUME 96.7 fl (80.0-94.0); MEAN CORPUSCULAR HEMOGLOBIN 31.5 pg (27.0-31.0); MEAN CORPUSCULAR HGB CONC 32.6 g/dL (33.0-37.0); RBC 2.86 Mil/uL (4.40-5.90); RED CELL DISTRIBUTION WIDTH 16.5 % (11.5-14.5); WHITE BLOOD COUNT 5.1 K/uL (4.8-10.8)
[2017-10-29 08:32] VITALS: RESP 20
--- NOTE | 2017-10-29 08:50 | CARD ---
APPROVED REPORT EKG Measurement Heart [id number] <Conclusion> Normal sinus rhythm Lateral infarct, age undetermined Abnormal ECG Note: Old EKGS reviewed and arm lead reversal is suspected-recommend repeat
[2017-10-29] MEDS ORDERED: Multivitamin Vitamin B Complex (Nephro-Vite) Tab PO SCH (09:00)
[2017-10-29] MEDS ORDERED: Cholecalciferol 1,000 INTLU TAB PO SCH (09:00)
--- NOTE | 2017-10-29 10:01 | CP.PCM.DIS ---
Provider - Provider Date of Admission: 10/28/17 13:49 Attending physician: Odalys Brito MD Primary care physician: Geovany Carmen MD Consults: PMD: Geovany Carmen MD Laundry Equipment Operator: Dr. Trinidad Time Spent in preparation of Discharge (in minutes): 30 Hospital Course - Lab Results Lab Results: Most Recent Lab Values WBC 5.1 K/uL (4.8-10.8) 10/29/17 05:17 RBC 2.86 Mil/uL (4.40-5.90) L 10/29/17 05:17 Hgb 9.0 g/dL (12.0-18.0) L 10/29/17 05:17 Hct 27.7 % (35.0-51.0) L 10/29/17 05:17 MCV 96.7 fl (80.0-94.0) H 10/29/17 05:17 MCH 31.5 pg (27.0-31.0) H 10/29/17 05:17 MCHC 32.6 g/dL (33.0-37.0) L 10/29/17 05:17 RDW 16.5 % (11.5-14.5) H 10/29/17 05:17 Plt Count 64 K/uL (130-400) L D 10/29/17 05:17 MPV 9.7 fl (7.2-11.7) 10/28/17 10:08 Neut % (Auto) 69.9 % (50.0-75.0) 10/28/17 10:08 Lymph % (Auto) 17.3 % (20.0-40.0) L 10/28/17 10:08 [place] % (Auto) 8.2 % (0.0-10.0) 10/28/17 10:08 Eos % (Auto) 3.8 % (0.0-4.0) 10/28/17 10:08 Baso % (Auto) 0.8 % (0.0-2.0) 10/28/17 10:08 Neut # 4.7 K/uL (1.8-7.0) 10/28/17 10:08 Lymph # 1.2 K/uL (1.0-4.3) 10/28/17 10:08 [place] # 0.6 K/uL (0.0-0.8) 10/28/17 10:08 Eos # 0.3 K/uL (0.0-0.7) 10/28/17 10:08 Baso # 0.1 K/uL (0.0-0.2) 10/28/17 10:08 PT 11.9 Seconds (9.8-13.1) 10/28/17 10:08 INR 1.1 (0.9-1.2) 10/28/17 10:08 APTT 31.6 Seconds (25.6-37.1) 10/28/17 10:08 Sodium 137 mmol/l (132-148) 10/29/17 05:17 Potassium 4.8 MMOL/L (3.6-5.0) 10/29/17 05:17 Chloride 94 mmol/L (98-107) L 10/29/17 05:17 Carbon Dioxide 32 mmol/L (22-30) H 10/29/17 05:17 Anion Gap 16 (10-20) 10/29/17 05:17 BUN 26 mg/dl (9-20) H 10/29/17 05:17 Creatinine 4.5 mg/dl (0.8-1.5) H 10/29/17 05:17 Est GFR ( Amer) 15 10/29/17 05:17 Est GFR (Non-Af Amer) 13 10/29/17 05:17 POC Glucose (mg/dL) 136 mg/dL (65-110) H 10/29/17 06:10 Random Glucose 139 mg/dL (75-110) H 10/29/17 05:17 Calcium 9.0 mg/dL (8.4-10.2) 10/29/17 05:17 Troponin I 0.0250 ng/mL (0.00-0.120) 10/29/17 03:48 NT-Pro-B Natriuret Pep 273418 pg/ml (0-900) H 10/28/17 16:58 - Hospital Course Hospital Course: 77 year old pleasantly demented male patient with extensive PMHx including ESRD on HD (//Wed) admitted to telemetry for chest pain, and hyperkalemia after missing scheduled dialysis. Patient was dialyzed last night, hyperkalemia resolved. Patient more awake and alert this AM, and is stable for d/c home with follow up with Dr. Marcelle Kruger on 11/08/17 @ 4PM. Patient to continue dialysis T/Th/ Sat. Discharge Exam - Head Exam Head Exam: ATRAUMATIC, NORMAL INSPECTION - Eye Exam Eye Exam: EOMI, Normal appearance Pupil Exam: NORMAL ACCOMODATION, PERRL - ENT Exam ENT Exam: Mucous Membranes Moist - Neck Exam Neck exam: Full Rom - Respiratory Exam Respiratory Exam: Clear to PA & Lateral, NORMAL BREATHING PATTERN. absent: Rales, Rhonchi, Wheezes - Cardiovascular Exam Cardiovascular Exam: RRR, +S2 - GI/Abdominal Exam GI & Abdominal Exam: Normal Bowel Sounds, Soft, Unremarkable. absent: Tenderness - Extremities Exam Extremities exam: full ROM Additional comments: RUE AV fistula with audible thrill. Old AV fistula LUE. Palpable peripheral pulses. - Back Exam Back exam: NORMAL INSPECTION - Neurological Exam Neurological exam: Alert - Psychiatric Exam Psychiatric exam: Normal Affect, Normal Mood - Skin Skin Exam: Dry, Intact, Normal Color, Warm Discharge Plan - Follow Up Plan Condition: FAIR Disposition: HOME/ ROUTINE Patient education suggested?: Yes Instructions: Heart Failure (DC), Heart Failure (GEN), Pacemaker (DC), Pacemaker (GEN), Pulmonary Edema (DC), Pulmonary Edema (GEN), Renal Failure Diet (DC), Ascites (DC), Ascites (GEN) Additional Instructions: Follow up with Dr. Kruger in [facility] 11/08/17 @ 4PM Referrals: David Trinidad MD [Staff Provider] -
[2017-10-29 12:54] VITALS: BP 113/53; PULSE 75; TEMP 97.3
[2017-10-31 12:37] VITALS: O2SAT 100
== END 2017-10-29 14:30 | disposition home or self-care (01) ==
LOC: H.ER 08:06 → H.ERHOLD 13:49 → H.TEL 17:40
PROVIDERS: ADMIT Family Medicine Geriatric Medicine; ATTEND Family Medicine Geriatric Medicine
DX: I13.2 Hypertensive heart and chronic kidney disease with heart failure and with stage 5 chronic kidney disease, or end stage renal disease (principal); I25.10 Atherosclerotic heart disease of native coronary artery without angina pectoris; I50.20 Unspecified systolic (congestive) heart failure; J44.9 Chronic obstructive pulmonary disease, unspecified; N18.6 End stage renal disease; Z79.82 Long term (current) use of aspirin; Z79.899 Other long term (current) drug therapy; Z88.8 Allergy status to other drugs, medicaments and biological substances; Z95.0 Presence of cardiac pacemaker; Z95.1 Presence of aortocoronary bypass graft; Z99.2 Dependence on renal dialysis; F32.9 Major depressive disorder, single episode, unspecified; G40.909 Epilepsy, unspecified, not intractable, without status epilepticus; R07.9 Chest pain, unspecified; D63.1 Anemia in chronic kidney disease; E11.22 Type 2 diabetes mellitus with diabetic chronic kidney disease; E78.00 Pure hypercholesterolemia, unspecified; E87.5 Hyperkalemia; F03.90 Unspecified dementia, unspecified severity, without behavioral disturbance, psychotic disturbance, mood disturbance, and anxiety
CPT/HCPCS: 36415; 71045; 80048; 82948; 83880; 84484; 85025; 85027; 85610; 85730; 86706; 86803; 87340; 93005; 99285; G0257; G0378

== ENCOUNTER 2017-12-31 19:05 | Inpatient (IN) | payer MEDICARE, MEDICAID ==
[2017-12-31 19:05] VITALS: BMI 23.0
[2017-12-31] MEDS ORDERED: Albuterol-Ipratrop 3 mg / 0.5 (3 ml) UD IH STA (19:34)
--- NOTE | 2017-12-31 19:34 | ED PDOC ---
HPI: General Adult Time Seen by Provider: 12/31/17 19:21 Chief Complaint (Nursing): Flu-like Symptoms Chief Complaint (Provider): Cough History Per: Patient History/Exam Limitations: no limitations Onset/Duration Of Symptoms: Days (3) Additional Complaint(s): Pt. with cough, congestion, runny nose, weakness. Dyspnea and chest pain. No abd pain, nausea, vomit. Had dialysis yesterday. No headaches or dizziness. PCP [facility]. sick recently with same. Took ASA and meds today. Past Medical History Reviewed: Historical Data, Nursing Documentation, Vital Signs Vital Signs: Last Vital Signs Temp 98.6 F 12/31/17 21:32 Pulse 72 12/31/17 22:16 Resp 17 12/31/17 22:16 BP 133/71 12/31/17 22:16 Pulse Ox 97 12/31/17 22:16 - Medical History PMH: Anxiety, CAD, CHF, COPD, Depression, Diabetes, Fractures, HTN, Hypercholesterolemia, End Stage Renal Disease, Chronic Kidney Disease (Dialysis ), Seizures Denies: HIV - Surgical History Surgical History: CABG, Pacemaker - Family History Family History: States: Unknown Family Hx - Living Arrangements Living Arrangements: With Family - Social History Current smoker - smoking cessation education provided: No Alcohol: None Drugs: Denies - Home Medications Home Medications: Ambulatory Orders Medication Instructions Recorded Aspirin [Ecotrin] 81 mg PO DAILY 11/27/16 Carvedilol [Coreg] 3.125 mg PO BID 11/27/16 Docusate Sodium [Stool Softener] 1 cap PO HS 11/27/16 Hydroxyzine HCl 25 mg PO DAILY 11/27/16 Sevelamer Carbonate [Renvela] 800 mg PO DAILY 11/27/16 Docusate [Colace] 100 mg PO BID #30 cap 08/08/17 Sevelamer Carbonate [Renvela] 0.8 gm PO DAILY packet 08/08/17 levETIRAcetam [Keppra] 250 mg PO DAILY tab 08/08/17 Aspirin [Lo-Dose Aspirin EC] 81 mg PO DAILY 10/28/17 Atorvastatin [Lipitor] 10 mg PO DAILY 10/28/17 Carvedilol [Coreg] 3.125 mg PO DAILY 10/28/17 Docusate Sodium [Velasquez' 100 mg PO DAILY 10/28/17 Laxative] Levetiracetam [Keppra] 250 mg PO DAILY 10/28/17 Levetiracetam [Roweepra] 500 mg PO DAILY 10/28/17 Olopatadine 0.1% Opht [Patanol 1 drop BOTHEYES DAILY 10/28/17 0.1% Opht Soln] Omeprazole 40 mg PO DAILY 10/28/17 Sevelamer Carbonate [Renvela] 800 mg PO DAILY 10/28/17 Vit B Cmplx 3/Folic AC/C/Biot 1 tab PO DAILY 10/28/17 [Celia-Chaz Rx Tablet] - Allergies Allergies/Adverse Reactions: Allergies Allergy/AdvReac Type Severity Reaction Status Date / Time heparin Allergy Mild SHORTNESS Verified 12/31/17 19:10 OF BREATH Review of Systems ROS Statement: Except As Marked, All Systems Reviewed And Found Negative Constitutional: Positive for: Fever, Weakness ENT: Positive for: Nose Pain, Nose Discharge, Nose Congestion Cardiovascular: Positive for: Chest Pain Respiratory: Positive for: Cough, Shortness of Breath Neurological: Positive for: Weakness Physical Exam - Reviewed Nursing Documentation Reviewed: Yes Vital Signs Reviewed: Yes - Physical Exam Appears: Positive for: Non-toxic, No Acute Distress Head Exam: Positive for: ATRAUMATIC, NORMAL INSPECTION, NORMOCEPHALIC Skin: Positive for: Normal Color, Warm, DRY Eye Exam: Positive for: EOMI, Normal appearance, PERRL ENT: Positive for: Nasal Congestion. Negative for: Pharyngeal Erythema, Tonsillar Exudate Neck: Positive for: Normal, Painless ROM, Supple Cardiovascular/Chest: Positive for: Regular Rate, Rhythm Respiratory: Positive for: Decreased Breath Sounds. Negative for: Accessory Muscle Use Gastrointestinal/Abdominal: Positive for: Normal Exam, Bowel Sounds, Soft. Negative for: Tenderness Back: Positive for: Normal Inspection. Negative for: L CVA Tenderness, R CVA Tenderness Extremity: Positive for: Normal ROM. Negative for: Tenderness, Pedal Edema Neurologic/Psych: Positive for: Alert, Oriented. Negative for: Motor/Sensory Deficits - Laboratory Results Result Diagrams: 12/31/17 19:50 12/31/17 21:20 Interpretation Of Abn Labs: no acute - ECG ECG: Positive for: Interpreted By Me, Viewed By Me ECG Rhythm: Positive for: Nonspecific Changes Interpretation Of Abn EKG: some changes st/t changed from old O2 Sat by Pulse Oximetry: 97 Pulse Ox Interpretation: Normal - Radiology X-Ray: Interpreted by Me, Viewed By Me X-Ray Interpretation: No Acute Disease - Progress ED Course And Treament: 2220: Stable. Will admit for chest pain eval and viral eval. AAOx3. Family med to admit. Will see pt. in the ED. Disposition - Clinical Impression Clinical Impression: URI (upper respiratory infection), Chest pain - Patient ED Disposition Is Patient to be Admitted: Yes Counseled Patient/Family Regarding: Studies Performed, Diagnosis - Disposition Disposition Time: 22:23 Condition: FAIR - Pt Status Changed To: Hospital Disposition Of: Observation - POA Present On Arrival: None
[2017-12-31] MEDS ORDERED: Sodium Chloride 0.9% 500 ML IV SCH (19:45)
[2017-12-31] MEDS ORDERED: Albuterol-Ipratrop 3 mg / 0.5 (3 ml) UD ONE (20:05)
[2017-12-31 20:11] LABS: BASO % 0.6 % (0.0-2.0); EOS % 0.3 % (0.0-4.0); HEMOGLOBIN 12.3 g/dL (12.0-18.0); LYMPH # 0.7 K/uL (1.0-4.3); MEAN CELL VOLUME 98.2 fl (80.0-94.0); MEAN CORPUSCULAR HEMOGLOBIN 31.8 pg (27.0-31.0); MEAN CORPUSCULAR HGB CONC 32.4 g/dL (33.0-37.0); MEAN PLATELET VOLUME 9.7 fl (7.2-11.7); MONO # 0.3 K/uL (0.0-0.8); MONO % 8.1 % (0.0-10.0); NEUT # 3.2 K/uL (1.8-7.0); NRBC % 0.2 % (0.0-0.0); RBC 3.86 Mil/uL (4.40-5.90); RED CELL DISTRIBUTION WIDTH 16.9 % (11.5-14.5); WHITE BLOOD COUNT 4.3 K/uL (4.8-10.8)
[2017-12-31 20:20] LABS: VENOUS BLOOD GAS PCO2 46 mmHg (40-60); VENOUS BLOOD GAS PO2 48 mm/Hg (30-55); VENOUS BLOOD PH 7.45 (7.32-7.43)
[2017-12-31 20:31] LABS: PARTIAL THROMBOPLASTIN TIME 32.8 Seconds (25.6-37.1); PROTHROMBIN TIME 11.4 Seconds (9.8-13.1)
[2017-12-31 20:33] LABS: ALB/GLOB RATIO 1.1 (1.0-2.1); ALBUMIN 3.4 g/dL (3.5-5.0); CALCIUM 8.5 mg/dL (8.4-10.2)
[2017-12-31 20:44] LABS: TROPONIN I 0.098 ng/mL (0.00-0.120)
--- NOTE | 2018-01-01 02:34 | CP.PCM.HP ---
History of Present Illness - History of Present Illness History of Present Illness: Patient accompanied by his daughter, who provided the history. 77 year old male patient with extensive PMHx including ESRD on HD () , CHF, DM2 presented to ED with 4 day history of general malaise, decreased appetite, cough and chest pain. She states his is sick as well, with similar symptoms. They sleep in separate rooms. He has cough that sound productive, unable to bring up phlegm. He received dialysis yesterday. No history of lung disease. Has CHF. Does not make much urine. Daughter notes that his chest pain is due to coughing, he is much better since arriving to ED. No fevers/chills, nausea/vomiting./diarrhea. Patient is poor historian, denied shortness of breath or chest pain at time of interview. He was sleepy but arousable. PMD: [facility] - Dr. Geovany Carmen, Director Of Marketing And Promotions: Dr. Trinidad, Community Relations Liaison: Dr. Oliva PMHx: ESRD on HD (), dementia, DM2, CHF : LVEF: 20-25%, HTN, seizure, CAD s/ p CABG 15 years ago PSH: CABG 15 years ago, AV fistula for dialysis x2 FH: non-contributory SH: denies ETOH/tobacco/illicit drug use Allergies: Heparin Medications: As per med rec Present on Admission - Present on Admission Any Indicators Present on Admission: No Review of Systems - Review of Systems Systems not reviewed;Unavailable: Acuity of Condition, Dementia Past Patient History - Past Medical History & Family History Past Medical History?: Yes - Past Social History Alcohol: None Drugs: Denies - CARDIAC Hx Cardiac Disorders: Yes Hx Congestive Heart Failure: Yes Hx Hypercholesterolemia: Yes Hx Hypertension: Yes Hx Pacemaker: Yes - PULMONARY Hx Respiratory Disorders: Yes Hx Chronic Obstructive Pulmonary Disease (COPD): Yes - NEUROLOGICAL Hx Neurological Disorder: Yes Hx Seizures: Yes - HEENT Hx HEENT Problems: No - RENAL Hx Chronic Kidney Disease: Yes (Dialysis ) Date of Last Dialysis Treatment: 12/30/17 - ENDOCRINE/METABOLIC Hx Endocrine Disorders: Yes - HEMATOLOGICAL/ONCOLOGICAL Hx Blood Disorders: No Hx Human Immunodeficiency Virus (HIV): No - INTEGUMENTARY Hx Dermatological Problems: No - MUSCULOSKELETAL/RHEUMATOLOGICAL Hx Musculoskeletal Disorders: Yes Hx Fractures: Yes - GASTROINTESTINAL Hx Gastrointestinal Disorders: No - GENITOURINARY/GYNECOLOGICAL Hx Genitourinary Disorders: Yes Hx Incontinence: Yes - PSYCHIATRIC Hx Psychophysiologic Disorder: Yes Hx Anxiety: Yes Hx Depression: Yes - SURGICAL HISTORY Hx Surgeries: Yes Hx Coronary Artery Bypass Graft: Yes - ANESTHESIA Hx Anesthesia: Yes Hx Anesthesia Reactions: No Hx Malignant Hyperthermia: No Meds Allergies/Adverse Reactions: Allergies Allergy/AdvReac Type Severity Reaction Status Date / Time heparin Allergy Mild SHORTNESS Verified 12/31/17 19:10 OF BREATH Physical Exam - Constitutional Appears: Other (sleepy but arousable) - Head Exam Head Exam: ATRAUMATIC, NORMAL INSPECTION, NORMOCEPHALIC - ENT Exam ENT Exam: Mucous Membranes Moist - Neck Exam Neck exam: Positive for: Normal Inspection - Respiratory Exam Respiratory Exam: Decreased Breath Sounds (diffusely bilaterally, transmitted breath sounds). absent: Accessory Muscle Use, Prolonged Expiratory Phase, Rales , Wheezes - Cardiovascular Exam Cardiovascular Exam: REGULAR RHYTHM (distant heart sounds) - GI/Abdominal Exam GI & Abdominal Exam: Soft. absent: Distended, Guarding - Rectal Exam Rectal Exam: Deferred - Extremities Exam Extremities exam: Positive for: normal inspection. Negative for: pedal edema - Back Exam Back exam: NORMAL INSPECTION Results - Vital Signs Recent Vital Signs: Last Vital Signs Temp 97.2 F L 01/01/18 00:30 Pulse 62 01/01/18 01:37 Resp 18 01/01/18 01:37 BP 135/66 01/01/18 00:30 Pulse Ox 99 01/01/18 01:37 - Labs Result Diagrams: 12/31/17 19:50 12/31/17 21:20 Labs: Laboratory Results - last 24 hr 12/31/17 12/31/17 12/31/17 19:43 19:50 19:50 WBC 4.3 L RBC 3.86 L Hgb 12.3 D Hct 37.9 MCV 98.2 H MCH 31.8 H MCHC 32.4 L RDW 16.9 H Plt Count 85 L D MPV 9.7 Neut % (Auto) 74.0 Lymph % (Auto) 17.0 L [place] % (Auto) 8.1 Eos % (Auto) 0.3 Baso % (Auto) 0.6 Neut # (Auto) 3.2 Lymph # (Auto) 0.7 L [place] # (Auto) 0.3 Eos # (Auto) 0.0 Baso # (Auto) 0.0 PT INR APTT pO2 48 VBG pH 7.45 H VBG pCO2 46 VBG HCO3 30.0 VBG Total CO2 33.4 H VBG O2 Sat (Calc) 88.0 H VBG Base Excess 7.0 H VBG Potassium 5.3 H Sodium 137.0 140 Chloride 101.0 96 L Glucose 151 H Lactate 1.4 FiO2 21.0 Potassium 5.3 H Carbon Dioxide 28 Anion Gap 21 H BUN 50 H Creatinine 6.7 H Est GFR ( Amer) 10 Est GFR (Non-Af Amer) 8 Random Glucose 151 H Calcium 8.5 Phosphorus 3.7 Magnesium 2.2 Total Bilirubin 0.9 AST 48 ALT 59 Alkaline Phosphatase 87 Troponin I 0.0980 Total Protein 6.6 Albumin 3.4 L Globulin 3.2 Albumin/Globulin Ratio 1.1 Venous Blood Potassium 5.3 H Influenza Typ A,B (EIA) 12/31/17 12/31/17 12/31/17 19:50 20:24 21:20 WBC RBC Hgb Hct MCV MCH MCHC RDW Plt Count MPV Neut % (Auto) Lymph % (Auto) [place] % (Auto) Eos % (Auto) Baso % (Auto) Neut # (Auto) Lymph # (Auto) [place] # (Auto) Eos # (Auto) Baso # (Auto) PT 11.4 INR 1.0 APTT 32.8 pO2 VBG pH VBG pCO2 VBG HCO3 VBG Total CO2 VBG O2 Sat (Calc) VBG Base Excess VBG Potassium Sodium Chloride Glucose Lactate FiO2 Potassium 4.8 Carbon Dioxide Anion Gap BUN Creatinine Est GFR ( Amer) Est GFR (Non-Af Amer) Random Glucose Calcium Phosphorus Magnesium Total Bilirubin AST ALT Alkaline Phosphatase Troponin I Total Protein Albumin Globulin Albumin/Globulin Ratio Venous Blood Potassium Influenza Typ A,B (EIA) Negative for flu a/b Assessment & Plan (1) Acute bronchitis Assessment and Plan: 77 year old male patient with extensive PMHx who presented to ED with 4 day history of general malaise, decreased appetite, cough and chest pain. Symptoms are likely secondary to viral infection, influenza testing negative. His sick contacts include his who has similar symptoms. He is afebrile, without leukocytosis or leukopenia of <4000. Lactate was WNL Patient is somnolent but arousable, and as per daughter-told to her by ED physician that the patient was desaturating into the 80s. This was not endorsed to the marine underwriter. Patient on O2 at time of evaluuation in ED with O2 sat of 98% -Will start patient on RTC duonebs -keep O2 sat >94%, no hx of of COPD. -given solumdrol in ED, no indication for antibiotics at this time. -symptom control -monitor vitals closely -f/u procalcitonin Status: Acute (2) DVT prophylaxis Assessment and Plan: scds -allergic to heparin -thrombocytopenia - chronic -ESRD - no lovenox Status: Acute (3) Thrombocytopenia Status: Chronic (4) ESRD (end stage renal disease) on dialysis Assessment and Plan: nephro consult, management as per Dr. Vivi nichols is t/th/SAT Status: Chronic (5) Seizure Assessment and Plan: managed with keppra 250 po daily Status: Chronic (6) Heart failure with reduced ejection fraction Assessment and Plan: last echo : 07/2016: LVEF 20-25% moderate MR, global hypokninesis. systolic function severely impaired, restrive diasolic relaxation -continue home medications -no signs of acute HF, no rales/pulmonary edema, dyspnea Status: Chronic
[2018-01-01] MEDS ORDERED: Sodium Chloride 0.9% 500 ML IV ONE (05:25)
[2018-01-01 07:27] LABS: BASO % 0.1 % (0.0-2.0); HEMOGLOBIN 13.8 g/dL (12.0-18.0); LYMPH # 0.4 K/uL (1.0-4.3); LYMPH % 11.3 % (20.0-40.0); MEAN CELL VOLUME 98.5 fl (80.0-94.0); MEAN CORPUSCULAR HEMOGLOBIN 32.1 pg (27.0-31.0); MEAN CORPUSCULAR HGB CONC 32.6 g/dL (33.0-37.0); MEAN PLATELET VOLUME 8.9 fl (7.2-11.7); MONO # 0.1 K/uL (0.0-0.8); MONO % 2.2 % (0.0-10.0); NEUT % 86.4 % (50.0-75.0); NRBC % 0.4 % (0.0-0.0); RBC 4.3 Mil/uL (4.40-5.90); RED CELL DISTRIBUTION WIDTH 16.8 % (11.5-14.5); WHITE BLOOD COUNT 3.4 K/uL (4.8-10.8)
[2018-01-01 07:56] LABS: CALCIUM 8.5 mg/dL (8.4-10.2)
[2018-01-01 08:09] LABS: TROPONIN I 0.07 ng/mL (0.00-0.120)
--- NOTE | 2018-01-01 08:31 | CP.PCM.PN ---
Subjective - Date & Time of Evaluation Date of Evaluation: 01/01/18 Time of Evaluation: 08:31 - Subjective Subjective: 77M seen and examined at bedside with attending. Patient denies SOB, chest pain, and had some mild cough overnight. Otherwise, no acute complaints and resting comfortably. Objective - Vital Signs/Intake and Output Vital Signs (last 24 hours): Temp Pulse Resp BP Pulse Ox 36.1 C L 68 18 133/71 100 01/01/18 08:23 01/01/18 08:23 01/01/18 08:23 01/01/18 08:23 01/01/18 08:23 - Medications Medications: Current Medications Acetaminophen (Tylenol 325mg Tab) 975 mg PO ONCE PRN PRN Reason: Fever >100.4 F Last Admin: 12/31/17 20:09 Dose: 975 mg Acetaminophen (Tylenol 325mg Tab) 650 mg PO Q6 PRN PRN Reason: Pain, Mild (1-3) Albuterol/Ipratropium (Duoneb 3 Mg/0.5 Mg (3 Ml) Ud) 3 ml INH RQID [facility] Aspirin (Ecotrin) 81 mg PO DAILY [facility] Atorvastatin Calcium (Lipitor) 10 mg PO DAILY [facility] Carvedilol (Coreg) 3.125 mg PO DAILY [facility] Docusate Sodium (Colace) 100 mg PO DAILY [facility] Sodium Chloride (Sodium Chloride 0.9%) 500 mls @ 100 mls/hr IV .Q5H [facility] Last Admin: 12/31/17 20:11 Dose: 100 mls/hr Levetiracetam (Keppra) 250 mg PO DAILY [facility] Olopatadine HCl (Patanol 0.1% Opht Soln) 1 drop OU DAILY [facility] Pantoprazole Sodium (Protonix Ec Tab) 40 mg PO DAILY [facility] Sevelamer HCl (Renagel) 800 mg PO DAILY [facility] Vitamin B Complex/Vit C/Folic Acid (Nephro-Chaz) 1 tab PO DAILY [facility] - Labs Labs: 01/01/18 05:48 01/01/18 05:48 PT 11.4 Seconds (9.8-13.1) 12/31/17 19:50 INR 1.0 (0.9-1.2) 12/31/17 19:50 APTT 32.8 Seconds (25.6-37.1) 12/31/17 19:50 - Constitutional Appears: Non-toxic, No Acute Distress - Head Exam Head Exam: ATRAUMATIC, NORMAL INSPECTION - Eye Exam Eye Exam: Normal appearance - ENT Exam ENT Exam: Mucous Membranes Moist - Respiratory Exam Respiratory Exam: Clear to Ausculation Bilateral (Breath sound transmitted from upper airways), Rhonchi (scattered R>L), NORMAL BREATHING PATTERN. absent: Wheezes - Cardiovascular Exam Cardiovascular Exam: REGULAR RHYTHM. absent: Murmur - GI/Abdominal Exam GI & Abdominal Exam: Soft, Normal Bowel Sounds. absent: Tenderness - Extremities Exam Extremities Exam: Full ROM, Normal Capillary Refill. absent: Pedal Edema - Neurological Exam Neurological Exam: Alert, Awake - Psychiatric Exam Psychiatric exam: Normal Affect, Normal Mood - Skin Skin Exam: Dry, Warm Assessment and Plan - Assessment and Plan (Free Text) Assessment: This is a 77M admitted for COPD exacerbation and concomitant URI. Tolerating PO , Influenza negative, procalcitonin is pending. Plan: ESRD: Nephrology consult, dialysis T/T/S, c/w medications HTN: Asymptomatic, controlled, c/w medications COPD: Acute chronic on home oxygen, DuoNebs Q6H [facility], Oxygen 2L via [place], c/w medications Cough: Guaifenasin, procalcitonin is pending CHF(Systolic- EF 2016 20-25%): Chronic, controlled, c/w medications Seizures, unspecified: asymptomatic, controlled, c/w medication DVT prophylaxis: SCDs (ESRD so no Lovenox, Platelets low so no SC Heparin)
--- NOTE | 2018-01-01 09:46 | RAD ---
HISTORY: Sepsis Patient COMPARISON: 10/28/2017 FINDINGS: LUNGS: There is interval improvement in aeration from the prior examination. There is probable decreased vascular congestion in addition to improved aeration. Mild linear subsegmental atelectasis and/or scarring is seen at the left lung base. No new infiltrate is seen. PLEURA: No significant pleural effusion identified, no pneumothorax apparent. CARDIOVASCULAR: Decreased congestion. Heart is enlarged. OSSEOUS STRUCTURES: No significant abnormalities. VISUALIZED UPPER ABDOMEN: Normal. OTHER FINDINGS: None. IMPRESSION: Interval improvement in aeration from prior study. No new infiltrate or CHF.
[2018-01-01] MEDS: Pantoprazole 40 mg EC Tab PO SCH (09:49)
[2018-01-01] MEDS: Olopatadine 0.1% Opht SOLN OU SCH (09:49)
[2018-01-01] MEDS: Multivitamin Vitamin B Complex (Nephro-Vite) Tab PO SCH (09:51)
--- NOTE | 2018-01-01 14:53 | CARD ---
APPROVED REPORT EKG Measurement Heart [id number] <Conclusion> Normal sinus rhythm Left axis deviation Incomplete left bundle branch block Nonspecific ST and T wave abnormality Prolonged QT Abnormal ECG
--- NOTE | 2018-01-01 14:57 | CARD ---
APPROVED REPORT EKG Measurement Heart [id number] <Conclusion> Normal sinus rhythm Left axis deviation Incomplete left bundle branch block Nonspecific T wave abnormality Prolonged QT Abnormal ECG
[2018-01-01] MEDS: guaiFENesin 100 mg/5 ml Syrup UD PO PRN (17:15)
--- NOTE | 2018-01-01 18:52 | CP.PCM.CON ---
History of Present Illness - History of Present Illness History of Present Illness: REASONS FOR CONSULT : ESRD ON HD .. NOW ON HIS HD HYPERKALEMIA .. K 5.6 ANEMIA OF CKD .. H/H STABLE PT WAS SEEN AND EXAMINED .. ON HD .. CONSENT WAS OBTAINED .. HD ORDERS GIVEN TO HD RN 77 year old male patient with extensive PMHx including ESRD on HD (/Wed) , CHF, DM2 presented to ED with 4 day history of general malaise, decreased appetite, cough and chest pain. She states his is sick as well, with similar symptoms. They sleep in separate rooms. He has cough that sound productive, unable to bring up phlegm. He received dialysis yesterday. No history of lung disease. Has CHF. Does not make much urine. Daughter notes that his chest pain is due to coughing, he is much better since arriving to ED. No fevers/chills, nausea/vomiting./diarrhea. Patient is poor historian, denied shortness of breath or chest pain at time of interview. He was sleepy but arousable. PMD: [facility] - Dr. Geovany Carmen, Cryolite Recovery Operator: Dr. Trinidad, Cranberry Sorter: Dr. Oliva PMHx: ESRD on HD (TThS), dementia, DM2, CHF : LVEF: 20-25%, HTN, seizure, CAD s/ p CABG 15 years ago PSH: CABG 15 years ago, AV fistula for dialysis x2 FH: non-contributory SH: denies ETOH/tobacco/illicit drug use Allergies: Heparin Medications: As per med rec Present on Admission - Present on Admission Any Indicators Present on Admission: No Review of Systems - Review of Systems Systems not reviewed;Unavailable: Acuity of Condition, Dementia Past Patient History - Past Medical History & Family History Past Medical History?: Yes - Past Social History Alcohol: None Drugs: Denies - CARDIAC Hx Cardiac Disorders: Yes Hx Congestive Heart Failure: Yes Hx Hypercholesterolemia: Yes Hx Hypertension: Yes Hx Pacemaker: Yes - PULMONARY Hx Respiratory Disorders: Yes Hx Chronic Obstructive Pulmonary Disease (COPD): Yes - NEUROLOGICAL Hx Neurological Disorder: Yes Hx Seizures: Yes - HEENT Hx HEENT Problems: No - RENAL Hx Chronic Kidney Disease: Yes (Dialysis ) Date of Last Dialysis Treatment: 12/30/17 - ENDOCRINE/METABOLIC Hx Endocrine Disorders: Yes - HEMATOLOGICAL/ONCOLOGICAL Hx Blood Disorders: No Hx Human Immunodeficiency Virus (HIV): No - INTEGUMENTARY Hx Dermatological Problems: No - MUSCULOSKELETAL/RHEUMATOLOGICAL Hx Musculoskeletal Disorders: Yes Hx Fractures: Yes - GASTROINTESTINAL Hx Gastrointestinal Disorders: No - GENITOURINARY/GYNECOLOGICAL Hx Genitourinary Disorders: Yes Hx Incontinence: Yes - PSYCHIATRIC Hx Psychophysiologic Disorder: Yes Hx Anxiety: Yes Hx Depression: Yes - SURGICAL HISTORY Hx Surgeries: Yes Hx Coronary Artery Bypass Graft: Yes Past Patient History - Past Medical History & Family History Past Medical History?: Yes - Past Social History Alcohol: None Drugs: Denies - CARDIAC Hx Cardiac Disorders: Yes Hx Congestive Heart Failure: Yes Hx Hypercholesterolemia: Yes Hx Hypertension: Yes Hx Pacemaker: Yes - PULMONARY Hx Respiratory Disorders: Yes Hx Chronic Obstructive Pulmonary Disease (COPD): Yes - NEUROLOGICAL Hx Neurological Disorder: Yes Hx Seizures: Yes - HEENT Hx HEENT Problems: No - RENAL Hx Chronic Kidney Disease: Yes (Dialysis ) Date of Last Dialysis Treatment: 12/30/17 - ENDOCRINE/METABOLIC Hx Endocrine Disorders: Yes - HEMATOLOGICAL/ONCOLOGICAL Hx Blood Disorders: No Hx Human Immunodeficiency Virus (HIV): No - INTEGUMENTARY Hx Dermatological Problems: No - MUSCULOSKELETAL/RHEUMATOLOGICAL Hx Musculoskeletal Disorders: Yes Hx Fractures: Yes - GASTROINTESTINAL Hx Gastrointestinal Disorders: No - GENITOURINARY/GYNECOLOGICAL Hx Genitourinary Disorders: Yes Hx Incontinence: Yes - PSYCHIATRIC Hx Psychophysiologic Disorder: Yes Hx Anxiety: Yes Hx Depression: Yes - SURGICAL HISTORY Hx Surgeries: Yes Hx Coronary Artery Bypass Graft: Yes - ANESTHESIA Hx Anesthesia: Yes Hx Anesthesia Reactions: No Hx Malignant Hyperthermia: No Meds Allergies/Adverse Reactions: Allergies Allergy/AdvReac Type Severity Reaction Status Date / Time heparin Allergy Mild SHORTNESS Verified 12/31/17 19:10 OF BREATH - Medications Medications: Current Medications Acetaminophen (Tylenol 325mg Tab) 975 mg PO ONCE PRN PRN Reason: Fever >100.4 F Last Admin: 12/31/17 20:09 Dose: 975 mg Acetaminophen (Tylenol 325mg Tab) 650 mg PO Q6 PRN PRN Reason: Pain, Mild (1-3) Albuterol/Ipratropium (Duoneb 3 Mg/0.5 Mg (3 Ml) Ud) 3 ml INH Q6H [facility] Aspirin (Ecotrin) 81 mg PO DAILY [facility] Last Admin: 01/01/18 09:49 Dose: 81 mg Atorvastatin Calcium (Lipitor) 10 mg PO DAILY [facility] Last Admin: 01/01/18 09:51 Dose: 10 mg Carvedilol (Coreg) 3.125 mg PO DAILY [facility] Last Admin: 01/01/18 09:49 Dose: 3.125 mg Docusate Sodium (Colace) 100 mg PO DAILY [facility] Last Admin: 01/01/18 09:48 Dose: 100 mg Guaifenesin (Robitussin) 100 mg PO Q4 PRN PRN Reason: Cough Last Admin: 01/01/18 17:15 Dose: 100 mg Levetiracetam (Keppra) 250 mg PO DAILY [facility] Last Admin: 01/01/18 09:50 Dose: 250 mg Olopatadine HCl (Patanol 0.1% Opht Soln) 1 drop OU DAILY [facility] Last Admin: 01/01/18 09:49 Dose: 1 drop Pantoprazole Sodium (Protonix Ec Tab) 40 mg PO DAILY [facility] Last Admin: 01/01/18 09:49 Dose: 40 mg Sevelamer HCl (Renagel) 800 mg PO DAILY [facility] Last Admin: 01/01/18 09:50 Dose: 800 mg Vitamin B Complex/Vit C/Folic Acid (Nephro-Chaz) 1 tab PO DAILY [facility] Last Admin: 01/01/18 09:51 Dose: 1 tab Results - Vital Signs Recent Vital Signs: Last Vital Signs Temp 97.3 F L 01/01/18 17:02 Pulse 70 01/01/18 17:02 Resp 16 01/01/18 17:02 BP 140/71 01/01/18 17:02 Pulse Ox 100 01/01/18 17:02 - Labs Result Diagrams: 01/01/18 05:48 01/01/18 05:48 Labs: Laboratory Results - last 24 hr 12/31/17 12/31/17 12/31/17 19:43 19:50 19:50 WBC 4.3 L RBC 3.86 L Hgb 12.3 D Hct 37.9 MCV 98.2 H MCH 31.8 H MCHC 32.4 L RDW 16.9 H Plt Count 85 L D MPV 9.7 Neut % (Auto) 74.0 Lymph % (Auto) 17.0 L [place] % (Auto) 8.1 Eos % (Auto) 0.3 Baso % (Auto) 0.6 Neut # (Auto) 3.2 Lymph # (Auto) 0.7 L [place] # (Auto) 0.3 Eos # (Auto) 0.0 Baso # (Auto) 0.0 PT INR APTT pO2 48 VBG pH 7.45 H VBG pCO2 46 VBG HCO3 30.0 VBG Total CO2 33.4 H VBG O2 Sat (Calc) 88.0 H VBG Base Excess 7.0 H VBG Potassium 5.3 H Sodium 137.0 140 Chloride 101.0 96 L Glucose 151 H Lactate 1.4 FiO2 21.0 Potassium 5.3 H Carbon Dioxide 28 Anion Gap 21 H BUN 50 H Creatinine 6.7 H Est GFR ( Amer) 10 Est GFR (Non-Af Amer) 8 POC Glucose (mg/dL) Random Glucose 151 H Calcium 8.5 Phosphorus 3.7 Magnesium 2.2 Total Bilirubin 0.9 AST 48 ALT 59 Alkaline Phosphatase 87 Troponin I 0.0980 Total Protein 6.6 Albumin 3.4 L Globulin 3.2 Albumin/Globulin Ratio 1.1 Procalcitonin Venous Blood Potassium 5.3 H Influenza Typ A,B (EIA) 12/31/17 12/31/17 12/31/17 19:50 20:24 21:20 WBC RBC Hgb Hct MCV MCH MCHC RDW Plt Count MPV Neut % (Auto) Lymph % (Auto) [place] % (Auto) Eos % (Auto) Baso % (Auto) Neut # (Auto) Lymph # (Auto) [place] # (Auto) Eos # (Auto) Baso # (Auto) PT 11.4 INR 1.0 APTT 32.8 pO2 VBG pH VBG pCO2 VBG HCO3 VBG Total CO2 VBG O2 Sat (Calc) VBG Base Excess VBG Potassium Sodium Chloride Glucose Lactate FiO2 Potassium 4.8 Carbon Dioxide Anion Gap BUN Creatinine Est GFR ( Amer) Est GFR (Non-Af Amer) POC Glucose (mg/dL) Random Glucose Calcium Phosphorus Magnesium Total Bilirubin AST ALT Alkaline Phosphatase Troponin I Total Protein Albumin Globulin Albumin/Globulin Ratio Procalcitonin Venous Blood Potassium Influenza Typ A,B (EIA) Negative for flu a/b 12/31/17 01/01/18 01/01/18 23:20 05:48 05:48 WBC 3.4 L RBC 4.30 L Hgb 13.8 Hct 42.3 MCV 98.5 H MCH 32.1 H MCHC 32.6 L RDW 16.8 H Plt Count 79 L MPV 8.9 Neut % (Auto) 86.4 H Lymph % (Auto) 11.3 L [place] % (Auto) 2.2 Eos % (Auto) 0.0 Baso % (Auto) 0.1 Neut # (Auto) 3.0 Lymph # (Auto) 0.4 L [place] # (Auto) 0.1 Eos # (Auto) 0.0 Baso # (Auto) 0.0 PT INR APTT pO2 VBG pH VBG pCO2 VBG HCO3 VBG Total CO2 VBG O2 Sat (Calc) VBG Base Excess VBG Potassium Sodium 138 Chloride 95 L Glucose Lactate FiO2 Potassium 5.6 H Carbon Dioxide 24 Anion Gap 25 H BUN 54 H Creatinine 7.1 H Est GFR ( Amer) 9 Est GFR (Non-Af Amer) 8 POC Glucose (mg/dL) Random Glucose 195 H Calcium 8.5 Phosphorus Magnesium Total Bilirubin AST ALT Alkaline Phosphatase Troponin I 0.0700 Total Protein Albumin Globulin Albumin/Globulin Ratio Procalcitonin 0.97 H Venous Blood Potassium Influenza Typ A,B (EIA) 01/01/18 01/01/18 01/01/18 06:06 10:55 16:15 WBC RBC Hgb Hct MCV MCH MCHC RDW Plt Count MPV Neut % (Auto) Lymph % (Auto) [place] % (Auto) Eos % (Auto) Baso % (Auto) Neut # (Auto) Lymph # (Auto) [place] # (Auto) Eos # (Auto) Baso # (Auto) PT INR APTT pO2 VBG pH VBG pCO2 VBG HCO3 VBG Total CO2 VBG O2 Sat (Calc) VBG Base Excess VBG Potassium Sodium Chloride Glucose Lactate FiO2 Potassium Carbon Dioxide Anion Gap BUN Creatinine Est GFR ( Amer) Est GFR (Non-Af Amer) POC Glucose (mg/dL) 186 H 238 H Random Glucose Calcium Phosphorus Magnesium Total Bilirubin AST ALT Alkaline Phosphatase Troponin I 0.0560 Total Protein Albumin Globulin Albumin/Globulin Ratio Procalcitonin Venous Blood Potassium Influenza Typ A,B (EIA) 01/01/18 16:22 WBC RBC Hgb Hct MCV MCH MCHC RDW Plt Count MPV Neut % (Auto) Lymph % (Auto) [place] % (Auto) Eos % (Auto) Baso % (Auto) Neut # (Auto) Lymph # (Auto) [place] # (Auto) Eos # (Auto) Baso # (Auto) PT INR APTT pO2 VBG pH VBG pCO2 VBG HCO3 VBG Total CO2 VBG O2 Sat (Calc) VBG Base Excess VBG Potassium Sodium Chloride Glucose Lactate FiO2 Potassium Carbon Dioxide Anion Gap BUN Creatinine Est GFR ( Amer) Est GFR (Non-Af Amer) POC Glucose (mg/dL) 241 H Random Glucose Calcium Phosphorus Magnesium Total Bilirubin AST ALT Alkaline Phosphatase Troponin I Total Protein Albumin Globulin Albumin/Globulin Ratio Procalcitonin Venous Blood Potassium Influenza Typ A,B (EIA) Assessment & Plan - Assessment and Plan (Free Text) Assessment: ESRD ON HD T T S .. WILL C/O HD AN IS PT HYPERKALEMIA .. ON HD NOW ANEMIA OF CKD .. H/H GOOD .. NO NEED FOR EPO MMP P : C/O CURRENT CARE C/O PRESENT MANAGEMENT C/O SAME MEDS - Date & Time Date: 01/01/18 Time: 13:00
[2018-01-01] MEDS: Albuterol-Ipratrop 3 mg / 0.5 (3 ml) UD INH SCH (19:52)
[2018-01-01] MEDS ORDERED: Albuterol-Ipratrop 3 mg / 0.5 (3 ml) UD INH SCH (23:27)
[2018-01-02] MEDS: Albuterol-Ipratrop 3 mg / 0.5 (3 ml) UD INH SCH ×4 (01:34→19:29)
[2018-01-02] MEDS: guaiFENesin 100 mg/5 ml Syrup UD PO PRN (05:27)
[2018-01-02] MEDS ORDERED: Azithromycin 500 MG in Sodium Chloride 0.9% 250 ML IVPB STA (08:06)
[2018-01-02 08:48] LABS: CALCIUM 8.2 mg/dL (8.4-10.2)
--- NOTE | 2018-01-02 09:23 | CP.PCM.DIS ---
Provider - Provider Date of Admission: 01/01/18 14:48 Attending physician: Geovany Carmen MD Time Spent in preparation of Discharge (in minutes): 45 Hospital Course - Lab Results Lab Results: Micro Results 12/31/17 19:50 Blood-Venous Blood Culture - Preliminary NO GROWTH AFTER 24 HOURS 12/31/17 19:50 Blood-Venous Blood Culture - Preliminary NO GROWTH AFTER 24 HOURS Most Recent Lab Values WBC 3.4 K/uL (4.8-10.8) L 01/01/18 05:48 RBC 4.30 Mil/uL (4.40-5.90) L 01/01/18 05:48 Hgb 13.8 g/dL (12.0-18.0) 01/01/18 05:48 Hct 42.3 % (35.0-51.0) 01/01/18 05:48 MCV 98.5 fl (80.0-94.0) H 01/01/18 05:48 MCH 32.1 pg (27.0-31.0) H 01/01/18 05:48 MCHC 32.6 g/dL (33.0-37.0) L 01/01/18 05:48 RDW 16.8 % (11.5-14.5) H 01/01/18 05:48 Plt Count 79 K/uL (130-400) L 01/01/18 05:48 MPV 8.9 fl (7.2-11.7) 01/01/18 05:48 Neut % (Auto) 86.4 % (50.0-75.0) H 01/01/18 05:48 Lymph % (Auto) 11.3 % (20.0-40.0) L 01/01/18 05:48 [place] % (Auto) 2.2 % (0.0-10.0) 01/01/18 05:48 Eos % (Auto) 0.0 % (0.0-4.0) 01/01/18 05:48 Baso % (Auto) 0.1 % (0.0-2.0) 01/01/18 05:48 Neut # (Auto) 3.0 K/uL (1.8-7.0) 01/01/18 05:48 Lymph # (Auto) 0.4 K/uL (1.0-4.3) L 01/01/18 05:48 [place] # (Auto) 0.1 K/uL (0.0-0.8) 01/01/18 05:48 Eos # (Auto) 0.0 K/uL (0.0-0.7) 01/01/18 05:48 Baso # (Auto) 0.0 K/uL (0.0-0.2) 01/01/18 05:48 PT 11.4 Seconds (9.8-13.1) 12/31/17 19:50 INR 1.0 (0.9-1.2) 12/31/17 19:50 APTT 32.8 Seconds (25.6-37.1) 12/31/17 19:50 pO2 48 mm/Hg (30-55) 12/31/17 19:43 VBG pH 7.45 (7.32-7.43) H 12/31/17 19:43 VBG pCO2 46 mmHg (40-60) 12/31/17 19:43 VBG HCO3 30.0 mmol/L 12/31/17 19:43 VBG Total CO2 33.4 mmol/L (22-28) H 12/31/17 19:43 VBG O2 Sat (Calc) 88.0 % (40-65) H 12/31/17 19:43 VBG Base Excess 7.0 mmol/L (0.0-2.0) H 12/31/17 19:43 VBG Potassium 5.3 mmol/L (3.6-5.2) H 12/31/17 19:43 Sodium 137.0 mmol/L (132-148) 12/31/17 19:43 Chloride 101.0 mmol/L (98-107) 12/31/17 19:43 Glucose 151 mg/dL (75-110) H 12/31/17 19:43 Lactate 1.4 mmol/L (0.7-2.1) 12/31/17 19:43 FiO2 21.0 % 12/31/17 19:43 Sodium 139 mmol/l (132-148) 01/02/18 06:14 Potassium 4.4 MMOL/L (3.6-5.0) 01/02/18 06:14 Chloride 93 mmol/L (98-107) L 01/02/18 06:14 Carbon Dioxide 28 mmol/L (22-30) 01/02/18 06:14 Anion Gap 22 (10-20) H 01/02/18 06:14 BUN 38 mg/dl (9-20) H 01/02/18 06:14 Creatinine 5.4 mg/dl (0.8-1.5) H 01/02/18 06:14 Est GFR ( Amer) 12 01/02/18 06:14 Est GFR (Non-Af Amer) 10 01/02/18 06:14 POC Glucose (mg/dL) 199 mg/dL (65-110) H 01/02/18 05:40 Random Glucose 210 mg/dL (75-110) H 01/02/18 06:14 Calcium 8.2 mg/dL (8.4-10.2) L 01/02/18 06:14 Phosphorus 3.7 mg/dl (2.5-4.5) 12/31/17 19:50 Magnesium 2.2 MG/DL (1.6-2.3) 12/31/17 19:50 Total Bilirubin 0.9 mg/dl (0.2-1.3) 12/31/17 19:50 AST 48 U/L (17-59) 12/31/17 19:50 ALT 59 U/L (21-72) 12/31/17 19:50 Alkaline Phosphatase 87 U/L (38-126) 12/31/17 19:50 Troponin I 0.0560 ng/mL (0.00-0.120) 01/01/18 16:15 Total Protein 6.6 G/DL (6.3-8.2) 12/31/17 19:50 Albumin 3.4 g/dL (3.5-5.0) L 12/31/17 19:50 Globulin 3.2 gm/dL (2.2-3.9) 12/31/17 19:50 Albumin/Globulin Ratio 1.1 (1.0-2.1) 12/31/17 19:50 Procalcitonin 0.97 NG/ML (0.19-0.49) H 12/31/17 23:20 Venous Blood Potassium 5.3 mmol/L (3.6-5.2) H 12/31/17 19:43 Influenza Typ A,B (EIA) Negative for flu a/b (NEGATIVE) 12/31/17 20:24 Discharge Exam - Head Exam Head Exam: ATRAUMATIC, NORMAL INSPECTION Discharge Plan - Follow Up Plan Condition: FAIR Disposition: HOME/ ROUTINE
[2018-01-02] MEDS: Multivitamin Vitamin B Complex (Nephro-Vite) Tab PO SCH (10:13)
[2018-01-02] MEDS: Pantoprazole 40 mg EC Tab PO SCH (10:13)
[2018-01-02] MEDS: Olopatadine 0.1% Opht SOLN OU SCH (10:14)
--- NOTE | 2018-01-02 15:33 | RAD ---
PROCEDURE: CHEST RADIOGRAPH, 1 VIEW HISTORY: cough, CAP, r/o infiltrate COMPARISON: 12/31/2017 FINDINGS: LUNGS: Stable mild interstitial change is noted. In addition there is some mild linear subsegmental atelectasis or scarring at the left lung base. No new focal infiltrate is identified. Vasculature is stable. PLEURA: Mild left-sided pleural thickening is unchanged. No pneumothorax. There is improved aeration at the left costophrenic angle from the prior study which may suggest decrease left pleural fluid. Right vascular stent is seen overlying the right upper lobe and apex. CARDIOVASCULAR: No CHF. Heart is enlarged. There is evidence of prior median sternotomy. OSSEOUS STRUCTURES: No significant abnormalities. VISUALIZED UPPER ABDOMEN: Normal. OTHER FINDINGS: None. IMPRESSION: No new focal infiltrate. Mild linear subsegmental atelectasis or scarring at the left lung base.
--- NOTE | 2018-01-02 21:30 | CP.PCM.PN ---
Subjective - Date & Time of Evaluation Date of Evaluation: 01/02/18 Time of Evaluation: 07:30 - Subjective Subjective: 77M seen and examined at bedside with attending. 77M who reports feeling much better, denies any SOB or chest pain and says his cough has lessened. Objective - Vital Signs/Intake and Output Vital Signs (last 24 hours): Temp Pulse Resp BP Pulse Ox 37.0 C 80 16 146/65 100 01/02/18 19:37 01/02/18 19:37 01/02/18 19:37 01/02/18 19:37 01/02/18 19:37 - Medications Medications: Current Medications Acetaminophen (Tylenol 325mg Tab) 975 mg PO ONCE PRN PRN Reason: Fever >100.4 F Last Admin: 12/31/17 20:09 Dose: 975 mg Acetaminophen (Tylenol 325mg Tab) 650 mg PO Q6 PRN PRN Reason: Pain, Mild (1-3) Albuterol/Ipratropium (Duoneb 3 Mg/0.5 Mg (3 Ml) Ud) 3 ml INH Q6H [facility] Last Admin: 01/02/18 19:29 Dose: 3 ml Aspirin (Ecotrin) 81 mg PO DAILY [facility] Last Admin: 01/02/18 10:13 Dose: 81 mg Atorvastatin Calcium (Lipitor) 10 mg PO DAILY [facility] Last Admin: 01/02/18 10:14 Dose: 10 mg Carvedilol (Coreg) 3.125 mg PO DAILY [facility] Last Admin: 01/02/18 10:14 Dose: 3.125 mg Docusate Sodium (Colace) 100 mg PO DAILY [facility] Last Admin: 01/02/18 10:13 Dose: 100 mg Guaifenesin (Robitussin) 100 mg PO Q4 PRN PRN Reason: Cough Last Admin: 01/02/18 05:27 Dose: 100 mg Azithromycin 500 mg/ Sodium (Chloride) 250 mls @ 250 mls/hr IVPB DAILY [facility] PRN Reason: Protocol Levetiracetam (Keppra) 250 mg PO DAILY [facility] Last Admin: 01/02/18 10:13 Dose: 250 mg Olopatadine HCl (Patanol 0.1% Opht Soln) 1 drop OU DAILY [facility] Last Admin: 01/02/18 10:14 Dose: 1 drop Pantoprazole Sodium (Protonix Ec Tab) 40 mg PO DAILY [facility] Last Admin: 01/02/18 10:13 Dose: 40 mg Sevelamer HCl (Renagel) 800 mg PO DAILY [facility] Last Admin: 01/02/18 10:13 Dose: 800 mg Vitamin B Complex/Vit C/Folic Acid (Nephro-Chaz) 1 tab PO DAILY [facility] Last Admin: 01/02/18 10:13 Dose: 1 tab - Labs Labs: 01/01/18 05:48 01/02/18 06:14 PT 11.4 Seconds (9.8-13.1) 12/31/17 19:50 INR 1.0 (0.9-1.2) 12/31/17 19:50 APTT 32.8 Seconds (25.6-37.1) 12/31/17 19:50 - Constitutional Appears: Well, Non-toxic - Head Exam Head Exam: NORMAL INSPECTION - Eye Exam Eye Exam: Normal appearance - ENT Exam ENT Exam: Mucous Membranes Moist - Respiratory Exam Respiratory Exam: Clear to Ausculation Bilateral (Oxygen 2L nasal cannula), Rhonchi (scattered), NORMAL BREATHING PATTERN - Cardiovascular Exam Cardiovascular Exam: REGULAR RHYTHM - GI/Abdominal Exam GI & Abdominal Exam: Soft, Normal Bowel Sounds - Extremities Exam Extremities Exam: Full ROM, Normal Capillary Refill, Normal Inspection - Neurological Exam Neurological Exam: Alert, Awake - Psychiatric Exam Psychiatric exam: Normal Affect, Normal Mood - Skin Skin Exam: Normal Color, Warm Assessment and Plan - Assessment and Plan (Free Text) Assessment: 77M admitted for possible pneumonia vs. COPD exacerbation with marked improvement since admission. Procalcitonin was mildly elevated suggesting a possible CAP given CXR relatively clear in admission with improvement when compared to prior. Will evaluate for discharge. Plan: URI: Influenza negative, procalcitonin elevated, started Azithromycin 500mg IV QD, Guaifenasin for cough, repeat CXR ESRD: Dialysis 01/01/18, c/w medications, BMP COPD: DuoNebs Q6H, oxygen 2LNC HTN: Asymptomatic, controlled, c/w medications CHF (systolic): chronic, controlled DVT Prophyalxis: SCDs
[2018-01-03] MEDS: Albuterol-Ipratrop 3 mg / 0.5 (3 ml) UD INH SCH ×3 (01:02→13:05)
[2018-01-03 06:10] LABS: HEMOGLOBIN 12.2 g/dL (12.0-18.0); MEAN CELL VOLUME 97.1 fl (80.0-94.0); MEAN CORPUSCULAR HEMOGLOBIN 31.8 pg (27.0-31.0); MEAN CORPUSCULAR HGB CONC 32.8 g/dL (33.0-37.0); RBC 3.83 Mil/uL (4.40-5.90); RED CELL DISTRIBUTION WIDTH 16.9 % (11.5-14.5); WHITE BLOOD COUNT 5.5 K/uL (4.8-10.8)
[2018-01-03 06:18] LABS: CALCIUM 8.5 mg/dL (8.4-10.2)
[2018-01-03 08:46] LABS: HEPATITIS B SURFACE AG Negative (NEGATIVE)
[2018-01-03 08:52] LABS: HEPATITIS B CORE AB NEGATIVE (NEGATIVE)
[2018-01-03] MEDS: Olopatadine 0.1% Opht SOLN OU SCH (08:52)
[2018-01-03] MEDS: Multivitamin Vitamin B Complex (Nephro-Vite) Tab PO SCH (08:52)
[2018-01-03] MEDS: Pantoprazole 40 mg EC Tab PO SCH (08:53)
[2018-01-03] MEDS ORDERED: Azithromycin 500 MG in Sodium Chloride 0.9% 250 ML IVPB SCH (09:00)
[2018-01-03 09:03] LABS: HEPATITIS C ANTIBODY NEGATIVE (NEGATIVE)
--- NOTE | 2018-01-03 11:20 | CP.PCM.DIS ---
Provider - Provider Date of Admission: 01/01/18 14:48 Attending physician: Geovany Carmen MD Primary care physician: Primary: Dr. Geovany Carmen MD Nephrology: Dr. Trinidad Cardiology: Dr. Oliva Consults: Nephrology; Dr. Mandujano Time Spent in preparation of Discharge (in minutes): 45 Diagnosis - Discharge Diagnosis (1) Acute bronchitis Status: Resolved Comment: Patient admitted to ED with 4 day history of general malaise, decreased appetite, cough and associated chest pain on 12/31/17. Troponin negative x 3. All home medications were continued and patient was placed on oxygen, duonebs and Guaifenasin. Chest xray clear, Influenza negative, procalcitonin elevated. Patient given 500 mg Azithromycin IV QD. F/u Chest xray showed no new focal infiltrate. Patient's symptoms improved Hospital Course - Lab Results Lab Results: Micro Results 12/31/17 19:50 Blood-Venous Blood Culture - Preliminary NO GROWTH AFTER 48 HOURS 12/31/17 19:50 Blood-Venous Blood Culture - Preliminary NO GROWTH AFTER 48 HOURS Most Recent Lab Values WBC 5.5 K/uL (4.8-10.8) D 01/03/18 05:35 RBC 3.83 Mil/uL (4.40-5.90) L 01/03/18 05:35 Hgb 12.2 g/dL (12.0-18.0) 01/03/18 05:35 Hct 37.2 % (35.0-51.0) 01/03/18 05:35 MCV 97.1 fl (80.0-94.0) H 01/03/18 05:35 MCH 31.8 pg (27.0-31.0) H 01/03/18 05:35 MCHC 32.8 g/dL (33.0-37.0) L 01/03/18 05:35 RDW 16.9 % (11.5-14.5) H 01/03/18 05:35 Plt Count 106 K/uL (130-400) L D 01/03/18 05:35 MPV 8.9 fl (7.2-11.7) 01/01/18 05:48 Neut % (Auto) 86.4 % (50.0-75.0) H 01/01/18 05:48 Lymph % (Auto) 11.3 % (20.0-40.0) L 01/01/18 05:48 [place] % (Auto) 2.2 % (0.0-10.0) 01/01/18 05:48 Eos % (Auto) 0.0 % (0.0-4.0) 01/01/18 05:48 Baso % (Auto) 0.1 % (0.0-2.0) 01/01/18 05:48 Neut # (Auto) 3.0 K/uL (1.8-7.0) 01/01/18 05:48 Lymph # (Auto) 0.4 K/uL (1.0-4.3) L 01/01/18 05:48 [place] # (Auto) 0.1 K/uL (0.0-0.8) 01/01/18 05:48 Eos # (Auto) 0.0 K/uL (0.0-0.7) 01/01/18 05:48 Baso # (Auto) 0.0 K/uL (0.0-0.2) 01/01/18 05:48 PT 11.4 Seconds (9.8-13.1) 12/31/17 19:50 INR 1.0 (0.9-1.2) 12/31/17 19:50 APTT 32.8 Seconds (25.6-37.1) 12/31/17 19:50 pO2 48 mm/Hg (30-55) 12/31/17 19:43 VBG pH 7.45 (7.32-7.43) H 12/31/17 19:43 VBG pCO2 46 mmHg (40-60) 12/31/17 19:43 VBG HCO3 30.0 mmol/L 12/31/17 19:43 VBG Total CO2 33.4 mmol/L (22-28) H 12/31/17 19:43 VBG O2 Sat (Calc) 88.0 % (40-65) H 12/31/17 19:43 VBG Base Excess 7.0 mmol/L (0.0-2.0) H 12/31/17 19:43 VBG Potassium 5.3 mmol/L (3.6-5.2) H 12/31/17 19:43 Sodium 137.0 mmol/L (132-148) 12/31/17 19:43 Chloride 101.0 mmol/L (98-107) 12/31/17 19:43 Glucose 151 mg/dL (75-110) H 12/31/17 19:43 Lactate 1.4 mmol/L (0.7-2.1) 12/31/17 19:43 FiO2 21.0 % 12/31/17 19:43 Sodium 138 mmol/l (132-148) 01/03/18 05:35 Potassium 4.6 MMOL/L (3.6-5.0) 01/03/18 05:35 Chloride 93 mmol/L (98-107) L 01/03/18 05:35 Carbon Dioxide 27 mmol/L (22-30) 01/03/18 05:35 Anion Gap 23 (10-20) H 01/03/18 05:35 BUN 48 mg/dl (9-20) H 01/03/18 05:35 Creatinine 6.4 mg/dl (0.8-1.5) H 01/03/18 05:35 Est GFR ( Amer) 10 01/03/18 05:35 Est GFR (Non-Af Amer) 8 01/03/18 05:35 POC Glucose (mg/dL) 141 mg/dL (65-110) H 01/03/18 05:45 Random Glucose 140 mg/dL (75-110) H 01/03/18 05:35 Calcium 8.5 mg/dL (8.4-10.2) 01/03/18 05:35 Phosphorus 3.7 mg/dl (2.5-4.5) 12/31/17 19:50 Magnesium 2.2 MG/DL (1.6-2.3) 12/31/17 19:50 Total Bilirubin 0.9 mg/dl (0.2-1.3) 12/31/17 19:50 AST 48 U/L (17-59) 12/31/17 19:50 ALT 59 U/L (21-72) 12/31/17 19:50 Alkaline Phosphatase 87 U/L (38-126) 12/31/17 19:50 Troponin I 0.0560 ng/mL (0.00-0.120) 01/01/18 16:15 Total Protein 6.6 G/DL (6.3-8.2) 12/31/17 19:50 Albumin 3.4 g/dL (3.5-5.0) L 12/31/17 19:50 Globulin 3.2 gm/dL (2.2-3.9) 12/31/17 19:50 Albumin/Globulin Ratio 1.1 (1.0-2.1) 12/31/17 19:50 Procalcitonin 0.97 NG/ML (0.19-0.49) H 12/31/17 23:20 Venous Blood Potassium 5.3 mmol/L (3.6-5.2) H 12/31/17 19:43 Hep Bs Antigen Negative (NEGATIVE) 01/01/18 18:30 Hep Bs Antibody Indeterminate (NEGATIVE) 01/01/18 18:30 Hep B Core IgM Ab Negative (NEGATIVE) 01/01/18 18:30 Hepatitis C Antibody Negative (NEGATIVE) 01/01/18 18:30 Influenza Typ A,B (EIA) Negative for flu a/b (NEGATIVE) 12/31/17 20:24 - Hospital Course Hospital Course: Patient admitted to ED with 4 day history of general malaise, decreased appetite , cough and associated chest pain on 12/31/17. Troponin negative x 3. All home medications were continued and patient was placed on oxygen, duonebs and Guaifenasin for symptoms as well as Keppra. Chest xray clear, Influenza negative , procalcitonin elevated. Patient given 500 mg Azithromycin IV QD for URI. F/u Chest xray showed no new focal infiltrate. Nephrology consult was also placed, Dr. Mandujano due to pt hx of ESRD. Patient underwent one round of regularly scheduled HD on 01/01 without incident. Patient's symptoms improved Patient to be discharged home today. Per request by patient's daughter patient will be discharged with note requesting that Home Health Care increase the number of hours that they spend with him daily Patient also dispensed Rx for Semi-electric hospital bed at home. Patient has dementia, ESRD and requires change in position and assistance with positioning, low weight at risk of pressure ulcers, also head of bed needs to be elevated to 30 degrees for sleep He will follow up with Dr. Carmen at the [facility] as well as Dr. Trinidad and Dr. Oliva as an outpatient - Date & Time of H&P Date of H&P: 01/03/18 Time of H&P: 12:33 Discharge Exam - Head Exam Head Exam: ATRAUMATIC, NORMAL INSPECTION, NORMOCEPHALIC - Eye Exam Eye Exam: EOMI, PERRL Pupil Exam: NORMAL ACCOMODATION - ENT Exam ENT Exam: Mucous Membranes Moist - Respiratory Exam Respiratory Exam: Clear to PA & Lateral, NORMAL BREATHING PATTERN - GI/Abdominal Exam GI & Abdominal Exam: absent: Distended, Firm, Guarding - Rectal Exam Rectal Exam: Deferred - Extremities Exam Extremities exam: normal capillary refill, normal inspection - Neurological Exam Neurological exam: Alert, Oriented x3 - Psychiatric Exam Psychiatric exam: Normal Affect, Normal Mood - Skin Skin Exam: Intact, Normal Color, Warm Discharge Plan - Follow Up Plan Condition: FAIR Disposition: HOME/ ROUTINE Instructions: Acute Bronchitis, Adult (DC), Chest Pain (DC) Additional Instructions: continue on dialysis t-thur-sat. follow up with in 1 week Referrals: David Trinidad MD [Staff Provider] - Marcelle Kruger MD [Family Provider] - 01/10/18 11:20 am
[2018-01-03 13:11] VITALS: O2SAT 100
[2018-01-03 15:23] VITALS: BP 134/72; PULSE 74; RESP 20; TEMP 97.7
--- NOTE | 2018-01-03 18:35 | CP.PCM.PN ---
Subjective - Date & Time of Evaluation Date of Evaluation: 01/03/18 Time of Evaluation: 11:30 - Subjective Subjective: SEEN ON RENAL F/U FOR D/C TODAY HAD HIS HD LAST SAT FEELS IMPROVED Objective - Vital Signs/Intake and Output Vital Signs (last 24 hours): Temp Pulse Resp BP Pulse Ox 97.7 F 74 20 134/72 100 01/03/18 15:22 01/03/18 15:22 01/03/18 15:22 01/03/18 15:22 01/03/18 15:22 - Labs Labs: 01/03/18 05:35 01/03/18 05:35 PT 11.4 Seconds (9.8-13.1) 12/31/17 19:50 INR 1.0 (0.9-1.2) 12/31/17 19:50 APTT 32.8 Seconds (25.6-37.1) 12/31/17 19:50 Assessment and Plan - Assessment and Plan (Free Text) Assessment: ESRD ON HD T T S ANEMIA OF CKD .. H/H STABLE BRONCHITIS MMP P : STABLE FOR D/C TO C/O CURRENT MEDS TO GET HIS HD TOMORROW AND TTS
--- NOTE | 2018-01-04 07:42 | PQF GENQUE ---
Dr. Brito, 3 queries: please add addendum to the D/C Summary 1. Please clarify the medical conditions necessitating admission. 2. COPD Exacerbation ruled in or ruled out 3. Pneumonia ruled in or ruled out: if ruled in type if known. 01/01: CXR: Impression: Interval improvement in aeration from prior study. No new infiltrate or CHF. H and P: No hx. COPD 01/02 Attending Progress note: admitted for possible pneumonia vs. COPD exacerbation with marked improvement since admission D/C Summary: Acute Bronchitis; Patient given 500 mg Azithromycin IV QD for URI. F/u Chest xray showed no new focal infiltrate. This form is a permanent part of the medical record Clarification of your documentation is requested to better reflect the severity of illness and intensity of treatment of your patient. Indicators present [] Specify: [] [] Specify: [] [] Specify: [] [] Specify: [] Location in the medical record that reflects the above clinical findings: [] Treatment Provided: [] PHYSICIAN'S RESPONSE Based on your medical judgment of the clinical indicators outlined above please clarify the following: [] Practitioner response [] If unable to determine, please check the box, sign and date. Present On Admission (POA) Indicator: [] Present at the time of admission [] Not present at the time of admission [] Clinically Undetermined In responding to this query, please exercise your independent professional judgment. The fact that a question is asked does not imply that any particular answer is desired or expected. Thank you for your clarification on this documentation. If you have any questions please call. * Thank you, Nora Chatman ext. #[phone] [facility]
--- NOTE | 2018-01-04 07:50 | PQF GENQUE ---
Dr. Brito, 2 queries: 1. Please provide a nutritional diagnosis, if known, related to the information below: if in agreement: i.e Underweight or Small Frame etc. The following clinical indicators are present in the medical record: BMI:18.7 5ft 2in 2. Please include the BMI in your progress note OR: Disagree OR: Other explanation of clinical finding This form is a permanent part of the medical record Clarification of your documentation is requested to better reflect the severity of illness and intensity of treatment of your patient. Indicators present [] Specify: [] [] Specify: [] [] Specify: [] [] Specify: [] Location in the medical record that reflects the above clinical findings: [] Treatment Provided: [] PHYSICIAN'S RESPONSE Based on your medical judgment of the clinical indicators outlined above please clarify the following: [] Practitioner response [] If unable to determine, please check the box, sign and date. Present On Admission (POA) Indicator: [] Present at the time of admission [] Not present at the time of admission [] Clinically Undetermined In responding to this query, please exercise your independent professional judgment. The fact that a question is asked does not imply that any particular answer is desired or expected. Thank you for your clarification on this documentation. If you have any questions please call. * Thank you, Nora Chatman RN ext. #[phone] [facility]
== END 2018-01-03 17:30 | disposition home health service (06) | DRG 202 ==
LOC: H.ER 19:05 → H.ERHOLD 22:23 → H.TEL 01-01 00:37 → OBSVTOIN 01-01 14:48
PROVIDERS: ADMIT Family Medicine; ATTEND Family Medicine
PROC: 3E0F7GC Introduction of Other Therapeutic Substance into Respiratory Tract, Via Natural or Artificial Opening (ICD-10-PCS; principal; 2018-01-01)
PROC: 5A1D70Z Performance of Urinary Filtration, Intermittent, Less than 6 Hours Per Day (ICD-10-PCS; 2018-01-01)
DX: J20.9 Acute bronchitis, unspecified (principal); N18.6 End stage renal disease; I13.2 Hypertensive heart and chronic kidney disease with heart failure and with stage 5 chronic kidney disease, or end stage renal disease; D69.6 Thrombocytopenia, unspecified; E11.22 Type 2 diabetes mellitus with diabetic chronic kidney disease; E87.5 Hyperkalemia; I50.22 Chronic systolic (congestive) heart failure; Z68.1 Body mass index [BMI] 19.9 or less, adult; J06.9 Acute upper respiratory infection, unspecified; D63.1 Anemia in chronic kidney disease; E78.00 Pure hypercholesterolemia, unspecified; F03.90 Unspecified dementia, unspecified severity, without behavioral disturbance, psychotic disturbance, mood disturbance, and anxiety; I25.10 Atherosclerotic heart disease of native coronary artery without angina pectoris; R56.9 Unspecified convulsions; Z79.82 Long term (current) use of aspirin; Z88.8 Allergy status to other drugs, medicaments and biological substances; Z95.0 Presence of cardiac pacemaker; Z95.1 Presence of aortocoronary bypass graft; Z99.2 Dependence on renal dialysis; F32.9 Major depressive disorder, single episode, unspecified; F41.9 Anxiety disorder, unspecified; F45.9 Somatoform disorder, unspecified; R32 Unspecified urinary incontinence; R63.0 Anorexia; Z79.899 Other long term (current) drug therapy